=== PATIENT | male | born 1985 | race Caucasian/White ===

== ENCOUNTER 2017-03-24 18:41 | Emergency (ER) | payer OTHER, SELFPAY ==
[2017-03-24 19:47] VITALS: BP 127/67; PULSE 140; RESP 20; TEMP 37.4; O2SAT 98; BMI 22.4
[2017-03-24 20:09] LABS: UTC Influenza A Antigen Positive (Negative); UTC Influenza B Antigen Negative (Negative)
--- NOTE | 2017-03-24 20:25 | HMH.EDUTC ---
[facility] [place] Disposition Clinical Impression: Influenza A, Exposure to influenza Disposition: Home, Self-Care Condition on Discharge: Good Instructions: DI for Influenza -- Adult Additional Instructions: * Discussed risks, side effects, risk of allergic reaction, and possible benefits. We even discussed hallucinations and uncontrollable fevers. rather not take tamiflu. * Lots of rest * Increase fluids, water, gatorade, powerade, pedialyte if /toddler/child * Monitor Temp. Tylenol every 4 hours as needed no more then 5 times a day or 4000mg in 24 hours and/or ibuprofen every 6 hours as needed no more then 3200mg in 24 hours (as long as your primary care doctor has told you that it is ok to take both) for fever/aches/pain. ER if fever no less than 101 despite tylenol and Ibuprofen * OTC cold/flu/sinus medication is ok but pick one. Do not take multiple different ones as they have similar ingredients and you can overdose on cold medication. * You (or your child) are contagious until no fever, aches, chills x 24 hours without medication for symptoms. * offered anti-emetic. Declined. Has zofran and promethazine at home. * Follow up with primary care IMMEDIATELY for new or worsening symptoms, improvement followed by suddenly feeling worse OR no noticeable improvement over the next 48-72 hours. 911 for difficulty breathing Forms: Work/School Release Time of Disposition: 20:33 Medical Decision Making Vital Signs: 03/24/17 19:47 Temperature 99.4 F Temperature Source Temporal Artery Scan Pulse Rate [Right Brachial] 140 H Respiratory Rate 20 Blood Pressure [Right Arm] 127/67 Blood Pressure Mean [Right Arm] 87 Blood Pressure Source [Right Arm] Automatic Cuff Blood Pressure Position [Right Arm] Sitting 02 Sat by Pulse Oximetry 98 Oxygen Delivery Method Room Air - Lab Data Lab results reviewed: Yes: I reviewed the patient's lab results. Lab Results 03/24/17 19:48: Influenza Type A Ag Positive A, Influenza Type B Ag Negative - Tae Inquiry Pt receiving controlled substance: No [facility] [place] HPI - General Stated complaint: vomiting,,Body Pain Time Seen by Provider: 03/24/17 20:25 Mode of Arrival: Ambulatory Source of Information: Patient Limitations: No Limitations Description of Symptoms (Recalled from Triage Doc. by RN): body aches, fever, chills HEENT Symptoms (Recalled from RN notes): No Resp Symptoms (Recalled from RN notes): No Skin Symptoms (Recalled from RN notes): No MS Symptoms (Recalled from RN notes): No Functional Status (Recalled from RN notes): n/a - History of Present Illness Provider Complaint: c/o fever, aches, chills. I think I have the flu . Exposed at work on Friday. Started this morning and getting worse throughout the day. Hasn't taken or tried anything for symptoms. - Related Data Home Medications Medication Instructions Recorded Confirmed Sertraline HCl [Zoloft] 150 mg PO DAILY 03/24/17 03/24/17 Allergies Allergy/AdvReac Type Severity Reaction Status Date / Time meperidine [From DEMEROL] Allergy Intermediate Unverified 01/28/17 14:46 morphine [MORPHINE] Allergy Intermediate Unverified 01/28/17 14:46 Penicillins Allergy Verified 03/24/17 19:54 - Worker's Comp Is this a Worker's Comp case?: No Is this an [facility] Worker's Comp?: No Is this a Denisa Worker's Comp?: No [facility] History I have reviewed the patient's past medical history: Yes Medical History: Reports:: Anxiety Denies:: Asthma, Chronic Obstructive Pulmonary Disease (COPD), Diabetes Mellitus Type 1, Diabetes Mellitus Type 2, Hypertension Laterality Cases: Bilateral: Tonsillectomy Other Surgeries: Yes: Other (tympanoplasty, tonsillectomy, sinus polyps, vasectomy) - *Social History Educational Level: Completed High School Smoking Status: Current every day smoker Tobacco Type: cigarettes Alcohol Intake: never - Psychiatric History Expresses thoughts of harming self/others: None Suicide Plan Description: No Plan RO
--- NOTE | 2017-03-24 20:31 | ED_ITS ---
[facility] [place] Disposition Clinical Impression: Influenza A, Exposure to influenza Disposition: Home, Self-Care Condition on Discharge: Good Instructions: DI for Influenza -- Adult Additional Instructions: * Discussed risks, side effects, risk of allergic reaction, and possible benefits. We even discussed hallucinations and uncontrollable fevers. rather not take tamiflu. * Lots of rest * Increase fluids, water, gatorade, powerade, pedialyte if /toddler/child * Monitor Temp. Tylenol every 4 hours as needed no more then 5 times a day or 4000mg in 24 hours and/or ibuprofen every 6 hours as needed no more then 3200mg in 24 hours (as long as your primary care doctor has told you that it is ok to take both) for fever/aches/pain. ER if fever no less than 101 despite tylenol and Ibuprofen * OTC cold/flu/sinus medication is ok but pick one. Do not take multiple different ones as they have similar ingredients and you can overdose on cold medication. * You (or your child) are contagious until no fever, aches, chills x 24 hours without medication for symptoms. * offered anti-emetic. Declined. Has zofran and promethazine at home. * Follow up with primary care IMMEDIATELY for new or worsening symptoms, improvement followed by suddenly feeling worse OR no noticeable improvement over the next 48-72 hours. 911 for difficulty breathing Forms: Work/School Release Time of Disposition: 20:33 Medical Decision Making Vital Signs: 03/24/17 19:47 Temperature 99.4 F Temperature Source Temporal Artery Scan Pulse Rate [Right Brachial] 140 H Respiratory Rate 20 Blood Pressure [Right Arm] 127/67 Blood Pressure Mean [Right Arm] 87 Blood Pressure Source [Right Arm] Automatic Cuff Blood Pressure Position [Right Arm] Sitting 02 Sat by Pulse Oximetry 98 Oxygen Delivery Method Room Air - Lab Data Lab results reviewed: Yes: I reviewed the patient's lab results. Lab Results 03/24/17 19:48: Influenza Type A Ag Positive A, Influenza Type B Ag Negative - Tae Inquiry Pt receiving controlled substance: No [facility] [place] HPI - General Stated complaint: vomiting,,Body Pain Time Seen by Provider: 03/24/17 20:25 Mode of Arrival: Ambulatory Source of Information: Patient Limitations: No Limitations Description of Symptoms (Recalled from Triage Doc. by RN): body aches, fever, chills HEENT Symptoms (Recalled from RN notes): No Resp Symptoms (Recalled from RN notes): No Skin Symptoms (Recalled from RN notes): No MS Symptoms (Recalled from RN notes): No Functional Status (Recalled from RN notes): n/a - History of Present Illness Provider Complaint: c/o fever, aches, chills. I think I have the flu . Exposed at work on Friday. Started this morning and getting worse throughout the day. Hasn't taken or tried anything for symptoms. - Related Data Home Medications Medication Instructions Recorded Confirmed Sertraline HCl [Zoloft] 150 mg PO DAILY 03/24/17 03/24/17 Allergies Allergy/AdvReac Type Severity Reaction Status Date / Time meperidine [From DEMEROL] Allergy Intermediate Unverified 01/28/17 14:46 morphine [MORPHINE] Allergy Intermediate Unverified 01/28/17 14:46 Penicillins Allergy Verified 03/24/17 19:54 - Worker's Comp Is this a Worker's Comp case?: No Is this an [facility] Worker's Comp?: No Is this a Denisa Worker's Comp?: No [facility] History I have reviewed the patient's past medical
[2017-03-24 20:39] VITALS: BP 137/77; PULSE 103; RESP 20; TEMP 36.7; O2SAT 100
== END 2017-03-24 20:39 | disposition home or self-care (01) ==
PROVIDERS: Emergency Provider Nurse Practitioner Family; Family Provider Family Medicine
DX: J10.1 Influenza due to other identified influenza virus with other respiratory manifestations (principal); F41.9 Anxiety disorder, unspecified; Z88.0 Allergy status to penicillin; Z88.6 Allergy status to analgesic agent
CPT/HCPCS: 87804; 99202

== ENCOUNTER 2017-05-14 18:32 | Emergency (ER) | payer OTHER, SELFPAY ==
[2017-05-14 18:36] VITALS: BP 118/47; PULSE 136; RESP 20; TEMP 37.4; O2SAT 97; BMI 20.6
--- NOTE | 2017-05-14 19:07 | PC.NURSE ---
report given to GiulianaRN
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
[2017-05-14 20:00] VITALS: BP 144/82; PULSE 92; RESP 16; TEMP 37.2; O2SAT 94
== END 2017-05-14 19:58 ==
PROVIDERS: Emergency Provider Emergency Medicine; Family Provider Family Medicine
DX: F11.10 Opioid abuse, uncomplicated (principal); F41.9 Anxiety disorder, unspecified; F17.210 Nicotine dependence, cigarettes, uncomplicated; Z88.0 Allergy status to penicillin; Z88.6 Allergy status to analgesic agent
CPT/HCPCS: 36415; 96365; 99282

== ENCOUNTER 2020-09-02 14:00 | Emergency (ER) | payer OTHER, SELFPAY ==
[2020-09-02 14:16] VITALS: BP 132/91; PULSE 66; RESP 16; TEMP 36.8; O2SAT 98; BMI 24.8
--- NOTE | 2020-09-02 14:41 | HMH.EDUTC ---
[facility] [place] Disposition Clinical Impression: Poison sumac Disposition: Home, Self-Care Condition on Discharge: Good Instructions: Summertime Rashes: Poison Ana Maria, Andrew, and Sumac, Poisonous Plants: Ana Maria, Andrew, and Sumac: Beware the Oils Additional Instructions: steroids as ordered start tomorrow if symptoms worsen return or be seen in ed Prescriptions: predniSONE [Prednisone 20mg Tab] 20 mg PO BID #10 tab Prescription Printed Referrals: Emery Landrum [Primary Care Provider] - Time of Disposition: 14:49 Medical Decision Making - Tae Inquiry Pt receiving controlled substance: No Vital Signs: 09/02/20 14:16 Temperature 98.3 F Temperature Source Tympanic Pulse Rate [Apical] 66 Respiratory Rate 16 Blood Pressure [Right Arm] 132/91 H Blood Pressure Mean [Right Arm] 104 Blood Pressure Source [Right Arm] Automatic Cuff Blood Pressure Position [Right Arm] Supine 02 Sat by Pulse Oximetry 98 Oxygen Delivery Method Room Air [facility] [place] HPI - General Chief complaint: Urgent [facility] Stated complaint: rash Time Seen by Provider: 09/02/20 14:41 Mode of Arrival: Ambulatory Source of Information: Patient Limitations: No Limitations Description of Symptoms (Recalled from Triage Doc. by RN): rash on arm chest and back HEENT Symptoms (Recalled from RN notes): No Resp Symptoms (Recalled from RN notes): No Skin Symptoms (Recalled from RN notes): No MS Symptoms (Recalled from RN notes): No Functional Status (Recalled from RN notes): na - History of Present Illness Provider Complaint: 35 yr old male presents for rash to back,chest, dania arms and dania upper legs. 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 - Related Data Home Medications Medication Instructions Recorded Confirmed Albuterol Sulfate [Albuterol HFA 1 - 2 puffs IH Q4-6H PRN 08/03/18 08/03/18 Inhaler] Previous Rx's Medication Instructions Recorded predniSONE [Prednisone 20mg 20 mg PO BID #10 tab 08/03/18 Tab] Ibuprofen [Ibuprofen 600mg 600 mg PO Q6HP PRN #30 tab 11/11/18 Tablet] Methocarbamol [Robaxin 500mg Tab] 500 mg PO BIDP PRN #30 tab 11/11/18 predniSONE [Prednisone 20mg 20 mg PO BID 4 Days #8 tab 10/02/19 Tab] Albuterol Sulfate [Albuterol 2.5 mg IH Q6HP PRN 30 Days #120 neb 12/15/18 0.083% 2.5mg/3mL neb] Doxycycline Hyclate [Doxycycline 100 mg PO BID 10 Days #20 cap 12/15/18 100mg Capsule] methylPREDNISolone [Medrol] 4 mg PO DIRECTED 6 Days #21 12/15/18 tab.ds.pk Ibuprofen [Ibuprofen 600mg 600 mg PO Q6HP PRN #30 tab 03/08/19 Tablet] Methocarbamol [Robaxin 500mg Tab] 500 mg PO BIDP PRN #30 tab 03/08/19 predniSONE [Prednisone 20mg 20 mg PO BID #10 tab 09/02/20 Tab] Allergies Allergy/AdvReac Type Severity Reaction Status Date / Time Penicillins Allergy Verified 08/03/18 21:12 Sulfa (Sulfonamide Allergy Verified 12/15/18 14:23 Antibiotics) - Worker's Comp Is this a Worker's Comp case?: No [facility] History - Hepatitis A Screen Drug use history?: No High risk sexual behaviors?: No History of sexually transmitted infection?: No Currently employed?: No Childcare worker?: No Do you have indoor plumbing?: Yes Do you have electricity?: Yes Attestation statement:: This patient has been screened for Hepatitis A risk factors. I have reviewed the patient's past medical history: Yes Medical History: Reports:: Anxiety Denies:: Asthma, Cancer, Chronic Obstructive Pulmonary Disease (COPD), Diabetes Mellitus Type 1, Diabetes Mellitus Type 2, Hypertension, MRSA Laterality Cases: Bilateral: Tonsillectomy Other Surgeries: Yes: Other (tympanoplasty, tonsillectomy, sinus polyps, vasectomy) Amputation: No - Social History Smoking Status: Former smoker Tobacco Type: cigarettes # Packs/Day (cigarettes): 1 Alcohol Intake: never Alcohol Intake Frequency:: holidays/special occasions only Substance Use Type: heroin Occupational Status: employed Housing: house [place]ous
[2020-09-02 15:03] VITALS: BP 132/91; PULSE 66; RESP 19; TEMP 36.8; O2SAT 98
== END 2020-09-02 15:08 | disposition home or self-care (01) ==
PROVIDERS: Emergency Provider Nurse Practitioner Family; PCP Family Medicine
DX: L23.7 Allergic contact dermatitis due to plants, except food (principal); F41.9 Anxiety disorder, unspecified; Z87.891 Personal history of nicotine dependence; Z88.0 Allergy status to penicillin; Z88.2 Allergy status to sulfonamides
CPT/HCPCS: 99202; G0463

== ENCOUNTER 2020-10-25 10:29 | Emergency (ER) | payer OTHER, SELFPAY ==
[2020-10-25 10:31] VITALS: BP 123/77; PULSE 103; RESP 18; TEMP 36.8; O2SAT 98; BMI 23.7
[2020-10-25 11:10] VITALS: BP 134/72; PULSE 87; RESP 18; TEMP 36.7; O2SAT 99; BMI 23.7
--- NOTE | 2020-10-25 11:29 | HMH.EDUTC ---
[facility] [place]ression: Viral URI with cough Disposition: Home, Self-Care Condition on Discharge: Good Instructions: Cough, DI for Viral Upper Respiratory Infection -- Adult, DI for COVID-19 (Suspected or Confirmed ), Preventing the Spread of Coronavirus Discharge Instructions Additional Instructions: *Monitor Temp, Over the counter Motrin or Tylenol as directed/as needed Tylenol every 4 hours and Motrin every 6 hours (as long as your family doctor has told you that you can take it) for fever or pain. and straight to ER if unable to lower temp less than 101.0 after medication given *Warm salt water gargles may help to soothe the throat *Throat Lozenges *Warm fluids like tea with honey may help to soothe the throat *Sleep elevated *Humidifier/Vaporizer *Flonase 2 sprays in each nostril daily but be aware that it may take 2-3 days before you notice improvement *Bromfed may cause drowsiness. Know how it effects you (your child) before driving, caring for small child, or sending your child to school. Not other antihistamines/allergy medications while taking bromfed Follow up IMMEDIATELY for new or worsening symptoms or no Noticeable improvement over the next 48-72 hours. 911 for difficulty breathing or swallowing You were tested for today for COVID19 your test result should be back in the next 24-48 hours, You was given a handout with how to log onto [facility] portal to get your results if you have issues logging on or no internet access you may call the [facility] for your results You was given a handout with instructions for Self Quarantine and Self isolation for while you wait on test results and what to do if they are positive If you are positive the Health Dept will be contacting you also Make sure to take your Vitamins Vit. C Vit D and Zinc if you can take them Prescriptions: Brompheniramine/Pseudoephed/Dm [Bromfed Dm Cough Syrup] 5 - 10 ml PO Q46H PRN #200 ml PRN Reason: Cough Transmission Status: Pending to [facility] # Fluticasone Propionate [Flonase 50mcg nasal spray 16gm] 1 spr NS DAILY #1 each Transmission Status: Pending to [facility] # Referrals: Emery Landrum [Primary Care Provider] - As needed Forms: Work/School Release Time of Disposition: 11:36 Medical Decision Making - Tae Inquiry Pt receiving controlled substance: No Tae was queried for this patient: No Vital Signs: 10/25/20 10:31 10/25/20 11:10 Temperature 98.2 F 98.1 F Temperature Source Oral Oral Pulse Rate [Radial] 103 H 87 Respiratory Rate 18 18 Blood Pressure [Right Arm] 123/77 134/72 Blood Pressure Mean [Right Arm] 92 92 Blood Pressure Position [Right Arm] Sitting 02 Sat by Pulse Oximetry 98 99 Oxygen Delivery Method Room Air Room Air Orders (Tests/Meds): ORDERS Category Date Time Status Covid-19 Nasal PCR ([facility]) Routine Lab 10/25/20 11:16 [place] [facility] [place] - General Stated complaint: covid test, congestion, runny nose, [place] Time Seen by Provider: 10/25/20 11:29 Mode of Arrival: Ambulatory Description of Symptoms (Recalled from Triage Doc. by RN): C/O FEVER, BODY ACHES, SNEEZING, HEADACHE & RUNNY NOSE SINCE LAST NIGHT. REPORTS DAUGHTER IS SICK AT HOME HEENT Symptoms (Recalled from RN notes): No Resp Symptoms (Recalled from RN notes): No Skin Symptoms (Recalled from RN notes): No MS Symptoms (Recalled from RN notes): No Functional Status (Recalled from RN notes): WNL - History of Present Illness Provider Complaint: Patient states that he daughter has been sick having sneezing, coughing and runny nose and he has been laying with her States that now he started last night having nasal congestion, cough, low grade fever, headache and body aches so he wanted to come in and get tested for COVID due to work wanting him too due to symptoms - Related Data Home Medications Medication Instructions Recorded Confirmed Albuterol Sulfate [Albuterol HFA 1 - 2 puffs IH Q4-6H PRN 06
[2020-10-25 11:38] VITALS: BP 134/72; PULSE 87; RESP 18; TEMP 36.7
== END 2020-10-25 11:41 | disposition home or self-care (01) ==
LOC: ER 10:52 → UTC 10:52
PROVIDERS: Emergency Provider Nurse Practitioner; PCP Family Medicine
DX: J06.9 Acute upper respiratory infection, unspecified (principal); Z20.822 Contact with and (suspected) exposure to COVID-19
CPT/HCPCS: 99202; C9803; G0463; U0003; U0005

== ENCOUNTER → 2020-11-22 15:37 | Outpatient (CLI) | payer OTHER, SELFPAY | PROVIDERS: PCP Family Medicine; Visit Provider Nurse Practitioner | DX: Z20.822 Contact with and (suspected) exposure to COVID-19 (principal) | CPT/HCPCS: C9803; U0003; U0005 ==

== ENCOUNTER 2020-11-24 11:53 | Emergency (ER) | payer OTHER, SELFPAY ==
[2020-11-24 11:54] VITALS: BP 125/86; PULSE 114; RESP 18; TEMP 37.4; O2SAT 97; BMI 24.3
[2020-11-24 11:59] VITALS: BP 128/86; PULSE 112; RESP 16; O2SAT 97
--- NOTE | 2020-11-24 12:08 | XR_ITS ---
PROCEDURE: XR CHEST PORTABLE CLINICAL HISTORY: cough COMPARISON: CR Chest from 08/03/2018 FINDINGS: The cardiomediastinal silhouette and pulmonary vascularity are within normal limits. The lungs are clear without infiltrates, suspicious nodules, or pleural effusions. Mild upper thoracic curvature convex right IMPRESSION: No acute findings. Dictated by: Daniel Corrales MD 11/24/2020 12:26 Daniel Corrales MD in [place] 11/24/2020 12:26
--- NOTE | 2020-11-24 12:12 | PC.NURSE ---
notified rad of cxr order, spoke with adriana
[2020-11-24 12:30] VITALS: BP 121/83; PULSE 101; RESP 15; O2SAT 97
[2020-11-24 13:00] VITALS: BP 111/80; PULSE 102; O2SAT 96
[2020-11-24 13:17] LABS: Influenza A, PCR Not Detected (NotDetected); Influenza B, PCR Not Detected (NotDetected)
[2020-11-24 13:30] VITALS: BP 123/77; PULSE 99; O2SAT 97
[2020-11-24 13:40] LABS: Coronavirus 19, PCR Detected (NotDetected)
--- NOTE | 2020-11-24 13:48 | HMH.EDGENADL ---
ED Disposition Clinical Impression: Bronchitis due to COVID-19 virus Disposition: Home, Self-Care Condition on Discharge: Good Instructions: DI for Acute Bronchitis Prescriptions: Albuterol Sulfate [Albuterol Sulfate Hfa] 2 puff IH Q4HP PRN #1 each PRN Reason: Wheezing Transmission Status: Pending to [facility] #[id number] Referrals: Emery Landrum [Primary Care Provider] - - Critical Care Critical Care Time: No Attestation: On 11/24/20, the high probability of a clinically significant, sudden or life threatening deterioration of the following system(s) required my full and direct attention, intervention and personal management. The time I documented below is in addition to time spent performing reported procedures but includes the following listed in this critical care notation. Medical Decision Making - Medical Records Medical records reviewed: Yes: I reviewed the patient's medical records. - Tae Inquiry Pt receiving controlled substance: No Vital Signs: 11/24/20 11:54 11/24/20 11:59 11/24/20 12:30 Temperature 99.3 F Temperature Source Oral Pulse Rate 112 H 101 H Pulse Rate [Right Radial] 114 H Respiratory Rate 18 16 15 Blood Pressure 128/86 121/83 Blood Pressure [Right Arm] 125/86 Blood Pressure Mean 106 95 Blood Pressure Mean [Right Arm] 99 Blood Pressure Source [Right Arm] Automatic Cuff Blood Pressure Position [Right Arm] Sitting 02 Sat by Pulse Oximetry 97 97 97 Oxygen Delivery Method Room Air - Lab Data Lab Results 11/24/20 12:02: SARS-CoV-2 (PCR) Detected A, Influenza A Untype (PCR) Not detected, Influenza Type B (PCR) Not detected Orders (Tests/Meds): ED MEDICATIONS Discontinued Medications Generic Name Dose Route Start Last Admin Trade Name Freq PRN Reason Stop Dose Admin Diphenhydramine HCl 25 mg 11/24/20 12:08 11/24/20 12:12 Diphenhydramine 25mg Capsule PO 11/24/20 12:09 25 mg ONCE ONE Administration Ibuprofen 800 mg 11/24/20 12:08 11/24/20 12:12 Ibuprofen 400 Mg Tablet PO 11/24/20 12:09 800 mg ONCE ONE Administration - Radiology Data #1 Image(s): Chest Image Reviewed: Yes I reviewed the patient's radiology results, Yes I reviewed the patient's radiology image, Yes I have reviewed radiologist's interpretation Preliminary Findings: Normal/NAD - Reevaluation(s) Time: 13:50 Reevaluation #1: On reevaluation, patient is feeling better. He has no hypoxia. Nontoxic. Afebrile. Findings consistent with acute viral syndrome secondary to Covid. Patient to follow-up with PCP in 48 hours. Given strict return precautions. Patient was also given CDC quarantine guidelines. Verbalized understanding. Medical Decision Narrative: 35-year-old male presented to the emergency department with viral type symptoms. Patient has had multiple sick contacts. Findings consistent with bronchitis. Work-up initiated. General Adult HPI - General Chief complaint: Upper Respiratory Infection Stated complaint: covid symptoms/exposure Time Seen by Provider: 11/24/20 11:55 Mode of Arrival: Ambulatory Limitations: No Limitations Description of Symptoms (Recalled from ER Triage Doc. by RN): pt reports body aches, headache, MARTIN, produtive cough, fever. Pt reports he tested negative for covid 2 days ago, states his symptoms have worsened since then. Pt reports positive exposure. - History of Present Illness HPI narrative: Is a 35-year-old male presented to the emergency department with some cough, shortness of breath, headache and myalgias. Patient is having symptoms for the last 3 days. He states that he has had multiple sick contacts at his house all people diagnosed with Covid. The patient is unvaccinated. States his cough is been nonproductive in nature. Has had no hemoptysis. Denies any associated chest pain or palpitations. Headache is global. Denies any change in vision or focal weakness. Full body myalgia
[2020-11-24 14:09] VITALS: BP 123/77; PULSE 99; RESP 16; TEMP 37.4; O2SAT 97
== END 2020-11-24 14:09 | disposition home or self-care (01) ==
PROVIDERS: Emergency Provider Emergency Medicine; PCP Family Medicine
DX: U07.1 COVID-19 (principal); J40 Bronchitis, not specified as acute or chronic
CPT/HCPCS: 71045; 99282; C9803; U0003; U0005

== ENCOUNTER 2020-12-12 16:18 | Emergency (ER) | payer OTHER, SELFPAY ==
--- NOTE | 2020-12-12 17:42 | XR_ITS ---
PROCEDURE INFORMATION: Exam: XR Chest Exam date and time: 12/12/2020 5:42 PM Age: 35 years old Clinical indication: Cough TECHNIQUE: Imaging protocol: XR of the chest. Views: 2 views. COMPARISON: CR XR CHEST PORTABLE 11/24/2020 12:20 PM FINDINGS: Lungs: Unremarkable. No consolidation. Pleural spaces: Unremarkable. No pleural effusion. No pneumothorax. Heart/Mediastinum: Unremarkable. No cardiomegaly. Bones/joints: Unremarkable. IMPRESSION: No acute findings.
[2020-12-12 17:45] VITALS: BP 129/82; PULSE 80; RESP 16; TEMP 36.6; O2SAT 100; BMI 23.0
--- NOTE | 2020-12-12 17:59 | HMH.EDUTC ---
[facility] [facility] [place] Clinical Impression: Asthma exacerbation Qualifiers: Asthma severity: unspecified severity Asthma persistence: unspecified Qualified Code(s): J45.901 - Unspecified asthma with (acute) exacerbation Disposition: Home, Self-Care Condition on Discharge: Good Instructions: DI for Asthma -- Adult, DI for Acute Bronchitis Additional Instructions: Drink plenty of fluids. Take tylenol or ibuprofen for pain or fever. Take the medications as directed. Follow up with your regular doctor. GO TO THE ER FOR ANY WORSENING SYMPTOMS Don't start the oral steroids until tomorrow, since you had the shot here today. Prescriptions: Brompheniramine/Pseudoephed/Dm [Bromfed Dm Cough Syrup] 5 ml PO Q6HP PRN #240 ml PRN Reason: Cough Transmission Status: Received by [facility] #[id number] predniSONE [Deltasone 10mg tablet] 10 mg PO DAILY 9 Days #21 tab Transmission Status: Received by [facility] #[id number] guaiFENesin [Mucinex 600mg tablet] 1 - 2 tab PO BIDP PRN #30 tab PRN Reason: Congestion Transmission Status: Received by [facility] #[id number] Azithromycin [Z-Iain 250mg Tab*] 250 mg PO UD DOSE PK #6 tab Transmission Status: Received by [facility] #[id number] Referrals: Emery Landrum [Primary Care Provider] - Forms: Work/School Release Time of Disposition: 18:39 Medical Decision Making - Medical Records Medical records reviewed: No: I reviewed the patient's medical records. - Tae Inquiry Pt receiving controlled substance: No Vital Signs: 12/12/20 17:45 12/12/20 18:39 Temperature 97.9 F 97.9 F Temperature Source Oral Pulse Rate 80 Pulse Rate [Left] 80 Respiratory Rate 16 18 Blood Pressure 129/82 Blood Pressure [Right Arm] 129/82 Blood Pressure Mean [Right Arm] 97 02 Sat by Pulse Oximetry 100 - Lab Data Lab results reviewed: Yes: I reviewed the patient's lab results. Orders (Tests/Meds): ED MEDICATIONS Discontinued Medications Generic Name Dose Route Start Last Admin Trade Name Freq PRN Reason Stop Dose Admin Ceftriaxone Sodium 1 gm 12/12/20 18:32 Ceftriaxone 1gm Vial IM 12/12/20 18:33 ONCE ONE Lidocaine HCl 0 ml 12/12/20 18:32 Lidocaine 1% 5ml Pf Vial IM 12/12/20 18:33 ONCE ONE Methylprednisolone Sodium Succinate 125 mg 12/12/20 18:32 12/12/20 18:34 Methylprednisolone Sod Succ 125mg Vial IM 12/12/20 18:33 125 mg ONCE ONE Administration - Radiology Data #1 Image(s): Chest Image Reviewed: Yes I reviewed the patient's radiology image, Yes I have reviewed radiologist's interpretation Preliminary Findings: Normal/NAD, No Infiltrates Seen PROCEDURE INFORMATION: Exam: XR Chest Exam date and time: 12/12/2020 5:42 PM Age: 35 years old Clinical indication: Cough TECHNIQUE: Imaging protocol: XR of the chest. Views: 2 views. COMPARISON: CR XR CHEST PORTABLE 11/24/2020 12:20 PM FINDINGS: Lungs: Unremarkable. No consolidation. Pleural spaces: Unremarkable. No pleural effusion. No pneumothorax. Heart/Mediastinum: Unremarkable. No cardiomegaly. Bones/joints: Unremarkable. IMPRESSION: No acute findings. [facility] [place] - General Stated complaint: congestion,cough,Runny nose Time Seen by Provider: 12/12/20 17:59 Mode of Arrival: Ambulatory Source of Information: Patient Limitations: No Limitations Description of Symptoms (Recalled from Triage Doc. by RN): pt states he was positive for covid about 2.5 weeks ago. pt states he is now having a productive cough with green sputum and that his chest feels tight. pt states he gets pneumonia about this time every year. pt states this feels the same. HEENT Symptoms (Recalled from RN notes): No Resp Symptoms (Recalled from RN notes): Yes (productive cough with green sputum) Skin Symptoms (Recalled from RN notes): No MS Symptoms (Recalled from RN notes): No Functional Statu
[2020-12-12 18:39] VITALS: BP 129/82; PULSE 80; RESP 18; TEMP 36.6
== END 2020-12-12 18:54 | disposition home or self-care (01) ==
PROVIDERS: Emergency Provider Nurse Practitioner Family; PCP Family Medicine
DX: J45.901 Unspecified asthma with (acute) exacerbation (principal); F41.9 Anxiety disorder, unspecified; Z86.16 Personal history of COVID-19
CPT/HCPCS: 71046; 96372; 99202; G0463

== ENCOUNTER 2021-02-06 11:07 | Emergency (ER) | payer OTHER, SELFPAY ==
[2021-02-06 12:21] VITALS: BP 127/74; PULSE 70; RESP 18; TEMP 37.1; O2SAT 98; BMI 23.0
[2021-02-06 12:30] VITALS: BP 127/74; PULSE 70; RESP 18; TEMP 37.1
[2021-02-06 12:31] LABS: UTC Strep Screen (Rapid) Positive (Negative)
--- NOTE | 2021-02-06 12:52 | HMH.EDUTC ---
[facility] [place] Clinical Impression: Strep throat Disposition: Home, Self-Care Condition on Discharge: Good Instructions: Strep Throat, DI for Strep Throat Additional Instructions: Drink plenty of fluids. Take tylenol or ibuprofen for pain or fever. Take the medications as directed. Follow up with your regular doctor. GO TO THE ER FOR ANY WORSENING SYMPTOMS Throw your tooth brush away and get a new one. The zofran is nausea/vomiting. Take it if you have those symptoms. Prescriptions: Ondansetron [Zofran 4mg ODT] 4 mg PO Q8HP PRN #20 tab PRN Reason: Nausea Transmission Status: Received by [facility] # predniSONE [Deltasone 10mg tablet] 10 mg PO BID 3 Days #6 tab Transmission Status: Received by [facility] # Azithromycin [Z-Iain 250mg Tab*] 250 mg PO UD DOSE PK #6 tab Transmission Status: Received by [facility] # Referrals: Emery Landrum [Primary Care Provider] - Forms: Work/School Release Time of Disposition: 13:14 Medical Decision Making - Medical Records Medical records reviewed: No: I reviewed the patient's medical records. - Tae Inquiry Pt receiving controlled substance: No Vital Signs: 02/06/21 12:21 02/06/21 12:30 Temperature 98.7 F 98.7 F Temperature Source Oral Pulse Rate 70 Pulse Rate [Left] 70 Respiratory Rate 18 18 Blood Pressure 127/74 Blood Pressure [Right Arm] 127/74 Blood Pressure Mean [Right Arm] 91 02 Sat by Pulse Oximetry 98 - Lab Data Lab results reviewed: Yes: I reviewed the patient's lab results. Lab Results 02/06/21 12:25: Strep Scn Rapid Clinic Positive A [facility] [place] HPI - General Stated complaint: vomiting,diarrhea,headache Time Seen by Provider: 02/06/21 12:52 Mode of Arrival: Ambulatory Source of Information: Patient Limitations: No Limitations Description of Symptoms (Recalled from Triage Doc. by RN): pt c/o a THIBODEAUX, n/v/d, and a stomach ache. has strep. HEENT Symptoms (Recalled from RN notes): Yes (THIBODEAUX) Resp Symptoms (Recalled from RN notes): No Skin Symptoms (Recalled from RN notes): No MS Symptoms (Recalled from RN notes): No Functional Status (Recalled from RN notes): wnl - History of Present Illness Provider Complaint: He states that he has had a sore throat and felt bad for the past 2 days. His was diagnosed with strep throat 2 days ago. He denies any fever or significant congestion or cough. - Related Data Home Medications Medication Instructions Recorded Confirmed Albuterol Sulfate [Albuterol HFA 1 - 2 puffs IH Q4-6H PRN 08/03/18 08/03/18 Inhaler] Previous Rx's Medication Instructions Recorded predniSONE [Prednisone 20mg 20 mg PO BID #10 tab 08/03/18 Tab] Ibuprofen [Ibuprofen 600mg 600 mg PO Q6HP PRN #30 tab 11/11/18 Tablet] Methocarbamol [Robaxin 500mg Tab] 500 mg PO BIDP PRN #30 tab 11/11/18 predniSONE [Prednisone 20mg 20 mg PO BID 4 Days #8 tab 11/11/18 Tab] Albuterol Sulfate [Albuterol 2.5 mg IH Q6HP PRN 30 Days #120 neb 12/15/18 0.083% 2.5mg/3mL neb] Doxycycline Hyclate [Doxycycline 100 mg PO BID 10 Days #20 cap 12/15/18 100mg Capsule] methylPREDNISolone [Medrol] 4 mg PO DIRECTED 6 Days #21 12/15/18 tab.ds.pk Ibuprofen [Ibuprofen 600mg 600 mg PO Q6HP PRN #30 tab 03/08/19 Tablet] Methocarbamol [Robaxin 500mg Tab] 500 mg PO BIDP PRN #30 tab 03/08/19 predniSONE [Prednisone 20mg 20 mg PO BID #10 tab 09/02/20 Tab] Brompheniramine/Pseudoephed/Dm 5 - 10 ml PO Q46H PRN #200 ml 10/25/20 [Bromfed Dm Cough Syrup] Fluticasone Propionate [Flonase 1 spr NS DAILY #1 each 10/25/20 50mcg nasal spray 16gm] Albuterol Sulfate [Albuterol 2 puff IH Q4HP PRN #1 each 11/24/20 Sulfate Hfa] Azithromycin [Z-Iain 250mg Tab*] 250 mg PO UD DOSE PK #6 tab 12/12/20 Brompheniramine/Pseudoephed/Dm 5 ml PO Q6HP PRN #240 ml 12/12/20 [Bromfed Dm Cough Syrup] guaiFENesin [Mucinex 600mg tablet] 1 - 2 tab PO BI
== END 2021-02-06 13:25 | disposition home or self-care (01) ==
PROVIDERS: Emergency Provider Nurse Practitioner Family; PCP Family Medicine
DX: J02.0 Streptococcal pharyngitis (principal); Z88.0 Allergy status to penicillin; Z88.2 Allergy status to sulfonamides
CPT/HCPCS: 87880; 99202; G0463

== ENCOUNTER → 2021-03-21 12:33 | Outpatient (CLI) | payer OTHER, SELFPAY ==
[2021-03-21 14:11] LABS: Volume,Semen 3.5 ml (2.0-5.0)
[2021-03-21 14:12] LABS: PH,Semen 8.5 (7.3-8.3); Semen Viscosity Stringy (Normal); Sperm Count 0 mil/mm3 (20-160); WBCs,Semen Negative
== END ==
PROVIDERS: PCP Family Medicine; Referring Provider Nurse Practitioner Obstetrics & Gynecology; Visit Provider Nurse Practitioner Obstetrics & Gynecology
DX: Z31.440 Encounter of male for testing for genetic disease carrier status for procreative management (principal)
CPT/HCPCS: 89320

== ENCOUNTER 2021-03-27 09:55 | Emergency (ER) | payer OTHER, SELFPAY ==
[2021-03-27 10:10] VITALS: BP 141/85; PULSE 74; RESP 19; TEMP 36.7; O2SAT 100; BMI 23.7
[2021-03-27 10:30] LABS: UTC Influenza A Antigen Negative (Negative); UTC Influenza B Antigen Negative (Negative)
--- NOTE | 2021-03-27 11:02 | HMH.EDUTC ---
[facility] – [place] Dis[place] Clinical Impression: Viral syndrome Disposition: Home, Self-Care Condition on Discharge: Good Instructions: DI for Nausea -- Adult, Diarrhea, Loperamide Additional Instructions: Drink extra fluids with and between meals. If you have difficulty drinking, try very small amounts of water or suck on ice chips. ? Avoid fruit juices, as these do not replace minerals and can actually increase diarrhea. ? Children and adults can use sports drinks to replenish electrolytes. Younger children and infants should use products formulated for children, like oral rehydration solutions. ? Eat food in small amounts and let your stomach recover. ? Get lots of rest. You may feel tired or weak. ? No greasy or fried foods for the next 24-48 hours BRAT diet Bananas Rice Apples and [place] ? Make sure to drink plenty of liquids ? Return if needed ? Straight to ER if any life threatening symptoms ? Zofran as prescribed ? You was given an outpatient order for diarrhea panel, please collect specimen and bring back to outpatient lab then call back to the [facility] or follow up with family doctor for results ? Follow up with family doctor in the next 48-72 hours if no improvement or any worsening of symptoms Referrals: Emery Landrum [Primary Care Provider] - As needed Forms: Work/School Release Time of Disposition: 11:14 Medical Decision Making - Tae Inquiry Pt receiving controlled substance: No Tae was queried for this patient: No Vital Signs: 03/27/21 10:10 Temperature 98.1 F Temperature Source Oral Pulse Rate [Right Brachial] 74 Respiratory Rate 19 Blood Pressure [Right Arm] 141/85 H Blood Pressure Mean [Right Arm] 103 Blood Pressure Source [Right Arm] Automatic Cuff Blood Pressure Position [Right Arm] Sitting 02 Sat by Pulse Oximetry 100 Oxygen Delivery Method Room Air - Lab Data Lab results reviewed: Yes: I reviewed the patient's lab results. Lab Results 03/27/21 10:26: Influenza Type A Ag Negative, Influenza Type B Ag Negative Orders (Tests/Meds): ORDERS Category Date Time Status Covid-19 Nasal PCR ([facility]) Routine Lab 03/27/21 10:14 Received [facility] [place] HPI - General Stated complaint: chills, diarrhea, h/a, congestion, body aches Time Seen by Provider: 03/27/21 11:02 Mode of Arrival: Ambulatory Source of Information: Patient Limitations: No Limitations Description of Symptoms (Recalled from Triage Doc. by RN): PATIENT C/O VOMITING AND BODY ACHES X 3 DAYS HEENT Symptoms (Recalled from RN notes): No Resp Symptoms (Recalled from RN notes): No Skin Symptoms (Recalled from RN notes): No MS Symptoms (Recalled from RN notes): Yes Functional Status (Recalled from RN notes): WNL - History of Present Illness Provider Complaint: Patient states johnnie the has been having body aches, chills, nasal congestion and vomiting and diarrhea States that he has some zofran at home that has helped with nausea and vomitng but he was worried that he may have COVID or flu so he wanted to get checked and tested - Related Data Allergies Allergy/AdvReac Type Severity Reaction Status Date / Time Penicillins Allergy Verified 10/25/20 11:29 Sulfa (Sulfonamide Allergy Verified 10/25/20 11:29 Antibiotics) - Worker's Comp Is this a Worker's Comp case?: No H History - Hepatitis A Screen Drug use history?: No High risk sexual behaviors?: No History of sexually transmitted infection?: No Currently employed?: No Childcare worker?: No Do you have indoor plumbing?: Yes Do you have electricity?: Yes Attestation statement:: This patient has been screened for Hepatitis A risk factors. I have reviewed the patient's past medical history: Yes Medical History: Reports:: Anxiety Denies:: Asthma, Cancer, Chronic Obstructive Pulmonary Disease (COPD), Diabetes Mellitus Type 1, Diabetes Mellitus Type 2, Hypertension, MRSA Laterality Cases: Bilateral: Tonsillectomy Other Surgeries: Yes: Other (tympanoplasty, tonsillectom
[2021-03-27 11:22] VITALS: BP 141/85; PULSE 74; RESP 19; TEMP 36.7; O2SAT 100
== END 2021-03-27 11:25 | disposition home or self-care (01) ==
PROVIDERS: Emergency Provider Nurse Practitioner; PCP Family Medicine
DX: B34.9 Viral infection, unspecified (principal); F41.9 Anxiety disorder, unspecified; Z87.891 Personal history of nicotine dependence; Z20.822 Contact with and (suspected) exposure to COVID-19; Z88.0 Allergy status to penicillin; Z88.2 Allergy status to sulfonamides
CPT/HCPCS: 87804; 99202; C9803; G0463; U0003; U0005

== ENCOUNTER 2021-05-07 11:31 | Emergency (ER) | payer OTHER, SELFPAY ==
[2021-05-07 13:10] VITALS: BP 128/81; PULSE 62; RESP 20; TEMP 37.1; O2SAT 98; BMI 22.6
--- NOTE | 2021-05-07 13:28 | HMH.EDUTC ---
[facility] [place]: Bronchitis, Influenza A Sinusitis Qualifiers: Sinusitis location: unspecified location Chronicity: unspecified Qualified Code(s): J32.9 - Chronic sinusitis, unspecified Disposition: Home, Self-Care Condition on Discharge: Good Instructions: Sinusitis, DI for Sinusitis, DI for Acute Bronchitis Additional Instructions: *Monitor Temp, Over the counter Motrin or Tylenol as directed/as needed Tylenol every 4 hours and Motrin every 6 hours (as long as your family doctor has told you that you can take it) for fever or pain. and straight to ER if unable to lower temp less than 101.0 after medication given *Warm salt water gargles may help to soothe the throat *Throat Lozenges *Warm fluids like tea with honey may help to soothe the throat *Sleep elevated *Humidifier/Vaporizer Take medication as prescribed Return if needed Follow up IMMEDIATELY for new or worsening symptoms or no Noticeable improvement over the next 48-72 hours. 911 for difficulty breathing or swallowing Prescriptions: predniSONE [Deltasone 10mg tablet] 10 mg PO BID #10 tab Transmission Status: Pending to [facility] #[id number] Oseltamivir Phosphate [Tamiflu 75mg Capsule] 75 mg PO BID #10 cap Transmission Status: Pending to [facility] #[id number] Azithromycin [Z-Iain 250mg Tab] 250 mg PO DIRECTED #6 tab Transmission Status: Pending to [facility] #[id number] Referrals: Emery Landrum [Primary Care Provider] - As needed Forms: Work/School Release Time of Disposition: 13:41 Medical Decision Making - Tae Inquiry Pt receiving controlled substance: No Tae was queried for this patient: No Vital Signs: 05/07/21 13:10 Temperature 98.8 F Temperature Source Oral Pulse Rate [Right Brachial] 62 Respiratory Rate 20 Blood Pressure [Right Arm] 128/81 Blood Pressure Mean [Right Arm] 96 Blood Pressure Source [Right Arm] Automatic Cuff Blood Pressure Position [Right Arm] Sitting 02 Sat by Pulse Oximetry 98 Oxygen Delivery Method Room Air - Lab Data Lab results reviewed: Yes: I reviewed the patient's lab results. [facility] [place] - General Stated complaint: cough, congestion, fever Time Seen by Provider: 05/07/21 13:35 Mode of Arrival: Ambulatory Source of Information: Patient Limitations: No Limitations Description of Symptoms (Recalled from Triage Doc. by RN): PATIENT C/O COUGH, SOA, AND STOMACH CRAMPS HEENT Symptoms (Recalled from RN notes): No Resp Symptoms (Recalled from RN notes): Yes Skin Symptoms (Recalled from RN notes): No MS Symptoms (Recalled from RN notes): No Functional Status (Recalled from RN notes): WNL - History of Present Illness Provider Complaint: Patient states that he has been sick for about a week States that he was having sinus congestion and at times he has had a productive cough like he gets with bronchitits but then was around someone with flu now he is feeling achy and headaches so he came in - Related Data Previous Rx's Medication Instructions Recorded Azithromycin [Z-Iain 250mg Tab] 250 mg PO DIRECTED #6 tab 05/07/21 Oseltamivir Phosphate [Tamiflu 75 mg PO BID #10 cap 05/07/21 75mg Capsule] predniSONE [Deltasone 10mg tablet] 10 mg PO BID #10 tab 05/07/21 Allergies Allergy/AdvReac Type Severity Reaction Status Date / Time Penicillins Allergy Verified 10/25/20 11:29 Sulfa (Sulfonamide Allergy Verified 10/25/20 11:29 Antibiotics) - Worker's Comp Is this a Worker's Comp case?: No [facility] History - Hepatitis A Screen Drug use history?: No High risk sexual behaviors?: No History of sexually transmitted infection?: No Currently employed?: No Childcare worker?: No Do you have indoor plumbing?: Yes Do you have electricity?: Yes Attestation statement:: This patient has been screened for Hepatitis A risk factors. I have reviewed the patient's past medical history: Yes Medical History: Reports:: Anxiety Denies:: Asthma, C
[2021-05-07 13:35] LABS: UTC Influenza A Antigen Positive (Negative); UTC Influenza B Antigen Negative (Negative)
[2021-05-07 13:48] VITALS: BP 128/81; PULSE 62; RESP 20; TEMP 37.1; O2SAT 98
== END 2021-05-07 13:52 | disposition home or self-care (01) ==
PROVIDERS: Emergency Provider Nurse Practitioner; PCP Family Medicine
DX: J10.1 Influenza due to other identified influenza virus with other respiratory manifestations (principal); J32.9 Chronic sinusitis, unspecified; Z79.82 Long term (current) use of aspirin; Z79.899 Other long term (current) drug therapy; Z88.0 Allergy status to penicillin; Z88.2 Allergy status to sulfonamides; Z87.891 Personal history of nicotine dependence
CPT/HCPCS: 87804; 99213; G0463

== ENCOUNTER 2021-08-29 17:28 | Emergency (ER) | payer OTHER, SELFPAY ==
[2021-08-29 17:37] VITALS: BP 121/83; PULSE 111; RESP 17; TEMP 37.1; O2SAT 95; BMI 23.0
[2021-08-29 17:46] LABS: UTC Strep Screen (Rapid) Negative (Negative)
--- NOTE | 2021-08-29 17:46 | HMH.EDUTC ---
[facility] [place] Clinical Impression: Viral syndrome, Exposure to COVID-19 virus Disposition: Home, Self-Care Condition on Discharge: Good Instructions: DI for COVID-19 (Suspected or Confirmed ), Preventing the Spread of Coronavirus Discharge Instructions Additional Instructions: Drink plenty of fluids. Take tylenol or ibuprofen for pain or fever. Take the medications as directed. Follow up with your regular doctor. GO TO THE ER FOR ANY WORSENING SYMPTOMS Quarantine until you know the results of your covid-19 test. Notify your school or workplace of your results and follow their instructions regarding return to work/school. Prescriptions: Ondansetron [Zofran 4mg ODT] 4 mg PO Q8HP PRN #12 tab PRN Reason: Nausea Transmission Status: Received by [facility] #[id number] Benzonatate [Benzonatate 100mg cap] 100 mg PO TIDP PRN #30 cap PRN Reason: Cough Transmission Status: Received by [facility] #[id number] methylPREDNISolone [Medrol] 4 mg PO DIRECTED 6 Days #21 packet Transmission Status: Received by [facility] #[id number] Referrals: Emery Landrum [Primary Care Provider] - Forms: Work/School Release Time of Disposition: 18:14 Medical Decision Making - Medical Records Medical records reviewed: No: I reviewed the patient's medical records. - Tae Inquiry Pt receiving controlled substance: No Vital Signs: 08/29/21 17:37 08/29/21 18:16 Temperature 98.7 F 98.2 F Temperature Source Oral Oral Pulse Rate 102 H Pulse Rate [Left Radial] 111 H Respiratory Rate 17 18 Blood Pressure 119/80 Blood Pressure [Right Arm] 121/83 Blood Pressure Mean [Right Arm] 95 02 Sat by Pulse Oximetry 95 Oxygen Delivery Method Room Air Room Air - Lab Data Lab results reviewed: Yes: I reviewed the patient's lab results. Lab Results 08/29/21 17:36: Chlamy pneumoniae PCR Not detected, Adenovirus (PCR) Not detected, B. pertussis DNA (PCR) Not detected, Coronavirus OC43 (PCR) Not detected, Coronavirus HKU1 (PCR) Not detected, Coronavirus 229E (PCR) Not detected, SARS-CoV-2 (PCR) Detected A, Coronavirus NL63 (PCR) Not detected, Human Metapneumovir PCR Not detected, Influenza A (H1) PCR Not detected, Influ A (H1N1/09) PCR Not detected, Influenza A (H3) PCR Not detected, Influenza Type A (PCR) Not detected, Influenza Type B (PCR) Not detected, M. pneumoniae (PCR) Not detected, Parainfluenza 1 (PCR) Not detected, Parainfluenza 2 (PCR) Not detected, Parainfluenza 3 (PCR) Not detected, Parainfluenza 4 (PCR) Not detected, RSV (PCR) Not detected, Entero/Rhino (PCR) Not detected 08/29/21 17:41: Strep Scn Rapid Clinic Negative Orders (Tests/Meds): ORDERS Category Date Time Status Strep Screen Confirmation Stat Micro 08/29/21 17:41 Received [facility] [place] HPI - General Stated complaint: covid test, sore throat, cough SOA, THIBODEAUX Time Seen by Provider: 08/29/21 17:46 Mode of Arrival: Ambulatory Source of Information: Patient Limitations: No Limitations Description of Symptoms (Recalled from Triage Doc. by RN): pt to [facility] c/o fever, body ches and a cough since yesterday. HEENT Symptoms (Recalled from RN notes): Yes Resp Symptoms (Recalled from RN notes): Yes Skin Symptoms (Recalled from RN notes): No MS Symptoms (Recalled from RN notes): No Functional Status (Recalled from RN notes): na - History of Present Illness Provider Complaint: He states that he has had fever up to 102, cough, chest congestion, body aches, and nausea - Related Data Previous Rx's Medication Instructions Recorded Azithromycin [Z-Iain 250mg Tab] 250 mg PO DIRECTED #6 tab 05/07/21 Oseltamivir Phosphate [Tamiflu 75 mg PO BID #10 cap 05/07/21 75mg Capsule] predniSONE [Deltasone 10mg tablet] 10 mg PO BID #10 tab 05/07/21 Benzonatate [Benzonatate 100mg 100 mg PO TIDP PRN #30 cap 08/29/21 cap] Ondansetron [Zofran 4mg ODT] 4 mg PO Q8HP PRN #12 tab 08/29/21 methylPREDNISolone [Medrol] 4 mg PO
[2021-08-29 18:16] VITALS: BP 119/80; PULSE 102; RESP 18; TEMP 36.8; O2SAT 97
[2021-08-29 18:36] LABS: Adenovirus,PCR Not Detected (NotDetected); Bordetella Pertussis Not Detected (NotDetected); Chlamydophila Pneumoniae, PCR Not Detected (NotDetected); Coronavirus 229E Not Detected (NotDetected); Coronavirus NL63 Not Detected (NotDetected); Coronavirus OC43 Not Detected (NotDetected); Coronovirus HKU1,PCR Not Detected (NotDetected); Human Metapneumovirus Not Detected (NotDetected); Influenza A, PCR Not Detected (NotDetected); Influenza AH1, 2009 Not Detected (NotDetected); Influenza AH1, PCR Not Detected (NotDetected); Influenza AH3,PCR Not Detected (NotDetected); Influenza B, PCR Not Detected (NotDetected); Mycoplasma Pneumoniae, PCR Not Detected (NotDetected); Parainfluenza 1, PCR Not Detected (NotDetected); Parainfluenza 2, PCR Not Detected (NotDetected); Parainfluenza 3, PCR Not Detected (NotDetected); Parainfluenza 4, PCR Not Detected (NotDetected); Respiratory Syncytial Virus Not Detected (NotDetected); Rhinovirus/Enterovirus Not Detected (NotDetected)
[2021-08-29 20:37] LABS: Coronavirus 19, PCR Detected (NotDetected)
== END 2021-08-29 18:17 | disposition home or self-care (01) ==
PROVIDERS: Emergency Provider Nurse Practitioner Family; PCP Family Medicine
DX: U07.1 COVID-19 (principal)
CPT/HCPCS: 87581; 87632; 87798; 87880; 99212; C9803; G0463; U0003; U0005

== ENCOUNTER 2023-03-10 08:37 | Observation (INO) | payer OTHER, SELFPAY ==
[2023-03-10] VITALS (10 sets, daily range): BP systolic 117–136; BP diastolic 66–100; PULSE 53–104; RESP 17–20; TEMP 36.7–37.2; O2SAT 97–100; BMI 22.4; BMI 21.1
--- NOTE | 2023-03-10 08:56 | ED_ITS ---
Discharge Plan Disposition Patient Disposition: Admitted Clinical Impressions Clinical Impression: Acute pancreatitis Discharge ED Provider: Jyoti Frausto General Adult HPI General Chief complaint: Abdominal Pain Stated complaint: ABD Pain Time Seen by Provider: 03/10/23 08:40 Mode of Arrival: EMS Source of Information: Patient Limitations: No Limitations Description of Symptoms (Recalled from ER Triage Doc. by RN): Patient brought to ED via [facility] c/o of abd pain. Patient also reports N/V/D that all started this morning. In route patient had 4mg zofran and 60mg Toradol per EMS. History of Present Illness HPI narrative: This patient is a 37-year-old male who reports remote history of bleeding ulcer, history of cholecystectomy, and history of anxiety presenting to the emergency department for evaluation with concern for intractable nausea, vomiting, and diarrhea that started at 5:00 this morning. He states that he is having severe cramping in his upper abdomen all the way across. He denies ever experiencing like this before. He denies any blood in his vomit or stools, and he denies any melena. He denies any other concerns or complaints. He notes that he does smoke marijuana but denies any significant alcohol use history. No other con cerns noted at this time. He arrives by EMS who noted that for his severe symptoms, they given 4 mg of Zofran and 60 mg of Toradol with no improvement in his symptoms. Related Data Previous Rx's Medication Instructions Recorded trazodone 50 mg tablet See Rx Instructions .Route 02/17/23 .COMPLEX #30 tabs venlafaxine 75 mg capsule,extended See Rx Instructions .Route 02/17/23 release 24 hr .COMPLEX #30 caps Allergies Allergy/AdvReac Type Severity Reaction Status Date / Time Penicillins Allergy Verified 12/19/22 09:50 Sulfa (Sulfonamide Allergy Verified 12/19/22 09:50 Antibiotics) [facility] Disclaimer: The information contained in this section may have been updated after the chikis ent was seen, as this information can be updated by other users. Medical History Generalized anxiety disorder History of bleeding ulcers Insomnia Surgical History History of cholecystectomy History of placement of ear tubes History of tonsillectomy Social History Smoking Status: Never smoker second hand exposure: No alcohol intake: current counseling given: No substance use type: former substance user, heroin and IV drugs counseling given: No current occupational status: employed Travel in the last 8 weeks: None adopted: No caregiver/support person: Yes (he has 2 kids at home) foster care: No household members: spouse and children housing: house lives independently: Yes marital status: number of children: 2 number of grandchildren: 0 education level: high school service: No current occupation: works at [employer] Recent Travel: No sexually active: Yes are you practicing safe sex: Yes caffeine: Yes physical activity: none zarina/judaism: None special zarina needs: No working smoke detector in home: Yes fire extinguisher in home: No carbon monox detector in home: Yes firearms in home: Yes firearms unloaded and locked: Yes do you feel safe at home: Yes victim of physical abuse: No victim of emotional abuse: No victim of sexual abuse: No would you like helpful sources: No ROS Obtained: Yes All systems reviewed & no additional complaints except as documented Physical Exam General General appearance: alert Comment: uncomfortable appearing Head Head exam: atraumatic and normocephalic Eye Eye exam: Present normal appearance, PERRL and EOMI ENT ENT exam: Present normal exam, normal oropharynx, mucous membranes moist and normal external ear exam Neck Neck exam: Present normal inspection, full ROM and trachea midline; Absent tenderness Chest Chest inspection: Present normal inspection and symmetric chest wall rise; Abs ent tenderness Respiratory Respiratory exam: Present normal lung sounds bilaterally; Absent respiratory distress, wheezes, stridor or accessory muscle use Cardiovascular Cardiovascular exam: Present regular rate and normal rhythm Abdominal Exam Abdominal exam: Present soft, tenderness (epigastric) and normal bowel sounds; Absent distention, guarding, rebound or rigidity Extremities Exam Extremities exam: Present normal inspection, full ROM and normal capillary refill; Absent tenderness or edema Back Exam Back exam: Present normal inspection and full ROM; Absent tenderness Neurological Exam Neurological exam: Present alert, oriented X3, CN II-XII intact and normal gait; Absent motor sensory deficit Psychiatric Psychiatric exam: Present normal affect and normal mood Skin Skin exam: Present warm and dry Medical Decision Making Medical Records Medical records reviewed: Yes I reviewed the patient's medical records. Tae Inquiry Pt receiving controlled substance: No Vital Signs: 03/10/23 08:41 03/10/23 09:00 03/10/23 10:00 Temperature 99.0 F Temperature Source Oral Pulse Rate 65 83 Pulse Rate [Right Radial] 69 Respiratory Rate 20 Blood Pressure 136/83 132/76 Blood Pressure [Right Arm] 131/100 H Blood Pressure Mean 99 Blood Pressure Mean [Right Arm] 110 Blood Pressure Source [Right Arm] Automatic Cuff Blood Pressure Position [Right Arm] Supine 02 Sat by Pulse Oximetry 99 100 100 Oxygen Delivery Method Room Air Room Air Room Air 03/10/23 11:00 03/10/23 12:00 Temperature Temperature Source Pulse Rate 64 53 L Pulse Rate [Right Radial] Respiratory Rate Blood Pressure 123/77 125/80 Blood Pressure [Right Arm] Blood Pressure Mean 104 104 Blood Pressure Mean [Right Arm] Blood Pressure Source [Right Arm] Blood Pressure Position [Right Arm] 02 Sat by Pulse Oximetry 99 Oxygen Delivery Method Room Air Lab Data Lab results reviewed: Yes I reviewed the patient's lab results. Lab Results 03/10/23 08:40: WBC 21.5 H*, RBC 5.24, Hgb 17.2, Hct 48.1, MCV 91.8, MCH 32.8 H, MCHC 35.7 H, RDW 13.6, Plt Count 230, MPV 7.9, Neut % (Auto) 90.6 H, Lymph % (Auto) 4.6 L, [place] % (Auto) 2.7, Eos % (Auto) 1.6, Baso % (Auto) 0.4, Neut # (Auto) 19.5 H, Lymph # (Auto) 1.0, [place] # (Auto) 0.6, Eos # (Auto) 0.4, Baso # (Auto) 0.1, Total Counted 100, Neutrophils % (Manual) 88 H, Band Neutrophils % 2.0, Lymphocytes % (Manual) 4 L, Monocytes % (Manual) 4, Eosinophils % (Manual) 2, Platelet Estimate Normal, RBC Morphology Normal, Sodium 136, Potassium 4.2, Chloride 103, Carbon Dioxide 21 L, Anion Gap 16.2 H, BUN 14, Creatinine 1.00, Estimated Creat Clear 108, Estimated GFR 85, Est GFR ( Amer) 102, Glucose 170 H, Calcium 9.0, Total Bilirubin 0.7, AST 67 H, ALT 49, Alkaline Phosphatase 73, Total Protein 7.4, Albumin 4.5, Globulin 2.9, Albumin/Globulin Ratio 1.6, Triglycerides 54, Cholesterol 205 H, LDL Cholesterol Direct 128.95, VLDL Cholesterol 11, HDL Cholesterol 42, Cholesterol/HDL Ratio 4.9 H, Lipase 728 H 03/10/23 09:30: Lactate 4.3 H 03/10/23 08:40 03/10/23 08:40 Orders (Tests/Meds): ED MEDICATIONS Generic Name Dose Route Start Last Admin Trade Name Jacek PRN Reason Stop Dose Admin Hydrocodone Bitart/Acetaminophen 1 tab 03/10/23 12:59 Hydrocodone/Apap 5/325 Mg Tablet PO 04/09/23 12:58 Q6HP PRN Mild to Moderate Pain (1-6) Heparin Sodium (Porcine) 5,000 unit 03/10/23 13:00 03/10/23 13:05 Heparin Sodium 5,000 Unit/Ml Vial SQ 04/09/23 12:59 5,000 unit Q8H PATRICIA Administration Ondansetron HCl 4 mg 03/10/23 12:59 Ondansetron 4mg/2ml Vial IV 04/09/23 12:58 Q6HP PRN Nausea And Vomiting Sodium Chloride 8 ml 03/10/23 08:57 03/10/23 08:59 Sodium Chloride 0.9% 10ml Vial IV 04/09/23 08:56 8 ml NEEDED PRN Administration dilute pepcid Discontinued Medications Generic Name Dose Route Start Last Admin Trade Name Jacek PRN Reason Stop Dose Admin Acetaminophen 1,000 mg 03/10/23 09:08 03/10/23 09:16 Acetaminophen 1,000mg/100ml Vial IV 03/10/23 09:09 1,000 mg ONCE ONE Administration Dicyclomine HCl 20 mg 03/10/23 08:55 03/10/23 09:00 Dicyclomine 10mg Capsule PO 03/10/23 08:56 20 mg ONCE ONE Administration Famotidine 20 mg 03/10/23 08:57 03/10/23 08:59 Famotidine 20mg/2ml Vial IV 03/10/23 08:58 20 mg ONCE ONE Administration Hydromorphone HCl 2 mg 03/10/23 09:21 03/10/23 09:34 Hydromorphone 2mg/Ml Syringe IV 03/10/23 09:22 Not Given ONCE ONE Hydromorphone HCl 1 mg 03/10/23 09:32 03/10/23 09:26 Hydromorphone 2mg/Ml Syringe IV 03/10/23 09:33 1 mg ONCE ONE Administration Lactated Ringer's 1,000 mls @ 999 mls/hr 03/10/23 08:55 03/10/23 08:59 Lactated Ringer's 1000 Ml Bag IV 03/10/23 09:55 999 mls/hr .Q1H1M ONE Administration Lactated Ringer's 1,000 mls @ 999 mls/hr 03/10/23 09:55 03/10/23 10:34 Lactated Ringer's 1000 Ml Bag IV 03/10/23 10:55 999 mls/hr .Q1H1M ONE Administration Iopamidol 75 ml 03/10/23 09:44 03/10/23 09:45 Iopamidol-370 (76%);100ml Bottle IV 03/10/23 09:45 75 ml ONCE ONE Administration Metoclopramide HCl 10 mg 03/10/23 08:55 03/10/23 08:59 Metoclopramide Hcl 10mg/2ml Vial IVP 03/10/23 08:56 10 mg ONCE ONE Administration Morphine Sulfate 4 mg 03/10/23 09:08 03/10/23 09:16 Morphine 4mg/Ml Syringe IV 03/10/23 09:09 4 mg ONCE ONE Administration Sodium Chloride 10 ml 03/10/23 09:44 03/10/23 09:45 Sodium Chloride 0.9% 10ml Syr (Rad Only) IV 03/10/23 09:45 10 ml ONCE ONE Administration ORDERS Category Date Time Status CT abdomen pelvis w con Stat Cat Scan 03/10/23 09:08 Completed US RUQ [US abdomen limited] Stat Exams 03/10/23 11:03 Completed Complete Blood Count Auto Diff AMLAB Lab 03/11/23 06:00 Ordered Complete Blood Count Auto Diff Stat Lab 03/10/23 08:40 Completed Comprehensive Metabolic Panel AMLAB Lab 03/11/23 06:00 Ordered Comprehensive Metabolic Panel Stat Lab 03/10/23 08:40 Completed Lactic Acid Stat Lab 03/10/23 09:30 Completed Lipase Stat Lab 03/10/23 08:40 Completed Lipid Panel Stat Lab 03/10/23 08:40 Completed Magnesium AMLAB Lab 03/11/23 06:00 Ordered Blood Culture Stat Micro 03/10/23 09:58 Received Medical Decision Narrative: In summary, this patient is a 37-year-old male presenting to the Emergency Department for evaluation of epigastric pain, nausea, vomiting, and diarrhea that started this morning. Differential diagnoses considered include but are not limited to viral syndrome, gastroenteritis, infectious colitis, pancreatitis, dehydration, cannabinoid induced hyperemesis. Ruling out the most morbid co nditions drove assessment. On exam, the patient is uncomfortable appearing and is actively asking for pain medication. He has tenderness in his epigastric region. He has already had remote history of cholecystectomy. Workup included CBC, CMP, lipase. He was given a bolus of IV fluids as well as IV Reglan and Bentyl for symptomatic improvement. Lab evaluation demonstrated concerns for lipase greater than 700. Patient also has leukocytosis of 21. Blood cultures and lactic acid were sent. Lactic acid was elevated, so 2 L bolus of IV fluids was ordered. Patient continued to have pain, so he was given IV morphine. This did not improve his pain, so he was ultimately given IV Dilaudid with good control of his pain. Given findings concerning for acute pancreatitis without known etiology, CT scan abdomen pelvis with IV contrast was ordered. This did not demonstrate any definitive reason, though the patient does have findings concerning for enteritis versus ileus, independent interpretation. He has a lot of fluid-filled loops of bowel. Please see radiology read for final interpretation. To further evaluate, right upper quadrant ultrasound was ordered. I independently interpreted right upper quadrant ultrasound and noted no obvious biliary dilatation. Given this, feel the patient would benefit from admission here for further evaluation and management of his acute pancreatitis. I called and had an interactive discussion with the hospitalist, Dr. Cornelius, who graciously admitted the patient. He was admitted in stable condition. Critical Care Critical Care Time Critical Care Time: No
[2023-03-10] MEDS: FAMOTIDINE 20MG/2ML VIAL 20 MG IV (08:59)
[2023-03-10] MEDS: LACTATED RINGERS 1000ML 1,000 ML 999 ML IV ×2 (08:59→10:34)
[2023-03-10] MEDS: SODIUM CHLORIDE 0.9% 10ML VIAL 8 ML IV (08:59)
[2023-03-10] MEDS: METOCLOPRAMIDE HCL 10MG/2ML VIAL 10 MG IVP (08:59)
[2023-03-10] MEDS: DICYCLOMINE 10MG CAPSULE 20 MG PO (09:00)
[2023-03-10 09:01] LABS: Basophils # 0.1 K/mm3 (0-0.2); Basophils % 0.4 % (0.1-2.0); Eosinophils # 0.4 K/mm3 (0.0-0.4); Eosinophils % 1.6 % (0.1-12.0); Hematocrit 48.1 % (42.0-52.0); Hemoglobin 17.2 g/dL (14.1-18.0); Lymphocytes % 4.6 % (10-50); Mean Corpuscular HGB Conc 35.7 g/dL (31.8-35.4); Mean Corpuscular Hemoglobin 32.8 pg (27.0-31.2); Mean Corpuscular Volume 91.8 fl (80-94); Mean Platelet Volume 7.9 fl (7.4-10.4); Monocytes # 0.6 K/mm3 (0.1-1.0); Monocytes % 2.7 % (1.7-9.3); Neutrophils # 19.5 K/mm3 (1.8-7.8); Neutrophils % 90.6 % (37.0-80.0); Platelet Count 230 K/mm3 (142-424); Red Blood Count 5.24 M/mm3 (4.60-6.20); Red Cell Distribution Width 13.6 % (11.5-17.5); White Blood Count 21.5 K/mm3 (4.8-10.8)
[2023-03-10 09:06] LABS: Alanine Aminotransferase 49 U/L (12-78); Albumin Level 4.5 g/dl (3.5-5.0); Albumin/Globulin Ratio 1.6 (1.1-1.8); Alkaline Phosphatase 73 U/L (38-126); Anion Gap 16.2 mEq/L (5-15); Aspartate Amino Transferase 67 U/L (17-59); Bilirubin,Total 0.7 mg/dl (0.2-1.3); Blood Urea Nitrogen 14 mg/dl (9-20); Carbon Dioxide 21 mmol/L (22.0-30.0); Chloride 103 mmol/L (98-107); Creatinine Clearance Estimated 108 mL/min (50-200); Estimated Glomerular Filt Rate 85 ml/min (>60); GFR (African American) 102 ML/MIN (>60); Globulin 2.9 g/dL (1.3-3.2); Glucose 170 mg/dl (74-100); Potassium 4.2 mmoL/L (3.5-5.1); Sodium 136 mmol/L (136-145); Total Protein,Serum 7.4 g/dl (6.3-8.2)
[2023-03-10 09:07] LABS: Lipase 728 U/L (23-300)
--- NOTE | 2023-03-10 09:08 | CT_ITS ---
FINAL REPORT TECHNIQUE: After the administration of intravenous contrast, axial images were obtained through the abdomen and pelvis by computed tomography. This study was performed with technique to keep radiation doses as low as reasonably achievable, (ALARA). Individualized dose reduction techniques using automated exposure control or adjustment of the MA and/or KV according to the patient's size were employed. CLINICAL HISTORY: acute pancreatitis, remote h/o cholecystectomy FINDINGS: Abdomen: The lung bases are clear. The liver is normal in size and attenuation. Patient is status postcholecystectomy. There is mild extrahepatic biliary ductal dilatation measuring up to 10 mm which may be related to postcholecystectomy change. The spleen is unremarkable. The adrenals are normal. The pancreas is unremarkable. There are bilateral nonobstructing renal stones measuring up to 4 mm. The aorta is normal in caliber. There is no free fluid or adenopathy. Pelvis: The appendix is not identified. The urinary bladder is unremarkable. There is no free fluid or adenopathy. There are fluid-filled loops of distal small bowel and cecum which may be due to enterocolitis or ileus. Fluid-filled cecum measures up to 7 cm. Prostate is unremarkable. IMPRESSION: No CT findings of pancreatitis. Fluid-filled distal small bowel and proximal colon which may represent enterocolitis or ileus. Reviewed, Interpreted and Dictated by Mik Brito MD Transcribed by Valery Barrientos Authenticated and [facility]
[2023-03-10 09:12] LABS: MANUAL DIFFERENTIAL MANUAL DIFFERENTIAL (MANUAL DIFF)
[2023-03-10] MEDS: ACETAMINOPHEN 1,000MG/100ML VIAL 1000 MG IV (09:16)
[2023-03-10] MEDS: MORPHINE 4MG/ML SYRINGE 4 MG IV (09:16)
[2023-03-10] MEDS: HYDROMORPHONE 2MG/ML SYRINGE 1 MG IV (09:26)
--- NOTE | 2023-03-10 09:35 | PC.NURSE ---
pt to CT at this time
--- NOTE | 2023-03-10 09:42 | PC.NURSE ---
Patient back from CT
[2023-03-10] MEDS: SODIUM CHLORIDE 0.9% 10ML SYR (RAD ONLY) 10 ML IV (09:45)
[2023-03-10] MEDS: IOPAMIDOL-370 (76%);100ML BOTTLE 75 ML IV (09:45)
[2023-03-10 09:55] LABS: Lactic Acid 4.3 mmol/L (0.7-2.1)
[2023-03-10 09:59] LABS: Eosinophils % 2 % (0-3); Lymphocytes % 4 % (10-50); Monocytes % 4 % (2-9); Neutrophils % 88 % (42-76); Total Cells Counted 100
[2023-03-10 10:01] LABS: Platelet Estimate Normal; RBC Morphology Normal
--- NOTE | 2023-03-10 11:03 | US_ITS ---
FINAL REPORT CLINICAL HISTORY: new onset pancreatitis, unknown etiology COMPARISON: None FINDINGS: Sonographic images of the right upper quadrant were obtained. The pancreas is partially obscured.The liver has an unremarkable appearance. Status post cholecystectomy. There is no evidence of biliary ductal dilatation.The common duct measures 3 mm. Limited images of the right kidney are unremarkable. IMPRESSION: Unremarkable right upper quadrant ultrasound. Reviewed, Interpreted and Dictated by Mik Brito MD Transcribed by Pham Story Authenticated and . [facility]
[2023-03-10 11:16] LABS: Chol/HDL Ratio 4.9 (1-3.5); Cholesterol 205 mg/dl (140-200); HDL Cholesterol 42 mg/dl (40-60); Triglycerides 54 mg/dl (30-150); VLDL Cholesterol 11 mg/dL (0-40)
--- NOTE | 2023-03-10 11:18 | PC.NURSE ---
PT SLEEPING IN BED CALL LIGHT AT BS
[2023-03-10 11:27] LABS: Direct LDL Cholesterol 128.95 mg/dL (100-129)
--- NOTE | 2023-03-10 12:59 | PC.NURSE ---
call made to care management for bed placement
--- NOTE | 2023-03-10 13:02 | P.HP_ITS ---
History of Present Illness *Admission Date: 03/10/23 *Reason for visit:: nausea and vomiting, abdominal pain *History of present illness: Mr. Valdivia is a 37yo M with anxiety who presented to the ED via EMS for abdominal pain, nausea, vomiting and diarrhea. States symptoms all began this morning about 4 5 in the morning. Acute onset of pain in his left upper quadrant and he began to have nausea and vomiting both from feeling nauseous but also from the pain. Denies any previous illness in the past week. No known sick contacts. Does have a remote history of bleeding ulcer many years ago and history of cholecystectomy when he was 16 after phrenectomy (secondary to his ulcer). Was in his normal state of health yesterday. Denies drinking more than once a week. Smokes marijuana occasionally. Reports emesis was bilious but nonbloody. No bloody bowel movement. No coffee-ground emesis. Workup in the ER concerning for elevated lipase of 700, intractable nausea and vomiting, and significant abdominal pain. Ultrasound obtained showing no biliary dilatation. Medicine consulted for admission and further medical management of suspected pancreatitis. On arrival to the floor, patient has tremor, looks quite anxious. No active nausea at that moment after medications administered in the ER. Status post 2 L IV fluid in the ER. No other complaints at this time. [facility] Disclaimer: The information contained in this section may have been updated after the patient was seen, as this information can be updated by other users. Medical History Asthma Generalized anxiety disorder H/O renal calculi History of bleeding ulcers Insomnia Surgical History History of abdominal surgery History of cholecystectomy History of nasal surgery History of placement of ear tubes History of tonsillectomy Family History No significant family history Social History Smoking Status: Never smoker second hand exposure: No alcohol intake: current counseling given: No substance use type: former substance user, heroin and IV drugs counseling given: No current occupational status: employed Travel in the last 8 weeks: None adopted: No caregiver/support person: Yes (he has 2 kids at home) foster care: No household members: spouse and children housing: house lives independently: Yes marital status: number of children: 2 number of grandchildren: 0 education level: high school service: No current occupation: works at [employer] Recent Travel: No sexually active: Yes are you practicing safe sex: Yes caffeine: Yes physical activity: none zarina/latter-day: None special zarina needs: No working smoke detector in home: Yes fire extinguisher in home: No carbon monox detector in home: Yes firearms in home: Yes firearms unloaded and locked: Yes do you feel safe at home: Yes victim of physical abuse: No victim of emotional abuse: No victim of sexual abuse: No would you like helpful sources: No Review of Systems Review of Systems Review of systems (narrative): 14 point review of systems performed, pertinent positives and negatives as per [facility] Meds Home Medications and Allergies Home Medications Medication Instructions Recorded Confirmed Type loratadine 10 mg tablet (Claritin) 10 mg PO DAILY Allergy Symptoms 03/10/23 03/10/23 History trazodone 50 mg tablet 50 mg PO HS Sleep 03/10/23 03/10/23 History venlafaxine 75 mg capsule,extended 75 mg PO DAILY Mood 03/10/23 03/10/23 History release 24 hr New Prescriptions to Start Prescriptions: Allergies Allergy/AdvReac Type Severity Reaction Status Date / Time Penicillins Allergy Verified 12/19/22 09:50 Sulfa (Sulfonamide Allergy Verified 12/19/22 09:50 Antibiotics) Exam Data for Last 24 hours Vital signs and Labs for Last 24 Hours: Temp Pulse Resp BP Pulse Ox O2 Del Method 99.0 F 53 L 20 125/80 99 Room Air 03/10/23 08:41 03/10/23 12:00 03/10/23 08:41 03/10/23 12:00 03/10/23 11:00 03/10/23 11:00 Laboratory Results - last 24 hr 03/10/23 08:40: WBC 21.5 H*, RBC 5.24, Hgb 17.2, Hct 48.1, MCV 91.8, MCH 32.8 H, MCHC 35.7 H, RDW 13.6, Plt Count 230, MPV 7.9, Neut % (Auto) 90.6 H, Lymph % (Auto) 4.6 L, [place] % (Auto) 2.7, Eos % (Auto) 1.6, Baso % (Auto) 0.4, Neut # (Auto) 19.5 H, Lymph # (Auto) 1.0, [place] # (Auto) 0.6, Eos # (Auto) 0.4, Baso # (Auto) 0.1, Total Counted 100, Neutrophils % (Manual) 88 H, Band Neutrophils % 2.0, Lymphocytes % (Manual) 4 L, Monocytes % (Manual) 4, Eosinophils % (Manual) 2, Platelet Estimate Normal, RBC Morphology Normal, Sodium 136, Potassium 4.2, Chloride 103, Carbon Dioxide 21 L, Anion Gap 16.2 H, BUN 14, Creatinine 1.00, Estimated Creat Clear 108, Estimated GFR 85, Est GFR ( Amer) 102, Glucose 170 H, Calcium 9.0, Total Bilirubin 0.7, AST 67 H, ALT 49, Alkaline Phosphatase 73, Total Protein 7.4, Albumin 4.5, Globulin 2.9, Albumin/Globulin Ratio 1.6, Triglycerides 54, Cholesterol 205 H, LDL Cholesterol Direct 128.95, VLDL Cholesterol 11, HDL Cholesterol 42, Cholesterol/HDL Ratio 4.9 H, Lipase 728 H 03/10/23 09:30: Lactate 4.3 H I & O for Last 24 hours: Intake & Output 03/07/23 03/08/23 03/09/23 03/10/23 23:59 23:59 23:59 23:59 Weight 74.843 kg Constitutional Constitutional: mild distress, average body habitus and cooperative *Routine HEENT Exam Head: Present normocephalic Eye: Present EOMI and PERRL ENT: Present mucous membranes moist *Routine Neck Exam Neck: Present supple; Absent lymphadenopathy *Routine Respiratory Exam Respiratory: Present CTA bilaterally; Absent rhonchi, wheezes or crackles *Routine Cardiovascular Exam Cardiovascular: Present RRR *Routine Abdominal Exam Abdominal: Present soft, normoactive bowel sounds and tenderness (Upper abdomen, worse in left upper quadrant) *Routine Rectal Exam Rectal:: deferred *Routine Genitalia Exam Genitalia:: deferred *Routine Extremities Exam Extremities: Absent cyanosis, clubbing or edema *Routine Skin Exam Skin: Present warm; Absent rash *Routine Neurological Exam Neurological: Present alert, oriented X3, moving all extremities and tremors; Absent altered mental status Routine Psychiatric Exam Psychiatric: Present normal affect, normal thought process and anxious Assessment and Plan *Assessment and plan (1) Acute pancreatitis: Status: Acute Category: Medical Code(s): K85.90 - Acute pancreatitis without necrosis or infection, unspecified (2) Vomiting and diarrhea: Status: Acute Category: Medical Code(s): R11.10 - Vomiting, unspecified; R19.7 - Diarrhea, unspecified (3) Leukocytosis: Status: Acute Category: Medical Code(s): D72.829 - Elevated white blood cell count, unspecified (4) Generalized anxiety disorder: Status: Acute Category: Medical Code(s): F41.1 - Generalized anxiety disorder Plan 37-year-old male who presents with nausea and vomiting. Concern for pancreatitis on workup in the ER. Discussed case with ER physician, request admission for IV fluids, pain management, bowel rest. Medicine agreed to admit for further management. Patient tremulous upon arriving to the floor, appears quite anxious. Anxiety addressed with one 0.5mg dose of Ativan. Initiated on IV fluids. Problems addressed as follows: Pancreatitis Nausea/vomiting/diarrhea -Lipase elevated above 700. Only 1 points on Parksley score at this time. -CT imaging shows ileus. Personally reviewed. -Will initiate clear liquids, encourage patient to rest his bowels but this gives him options to drink if he would like. -Pantoprazole 40 mg IV twice daily for GERD component/acid suppression -Hydrocodone 5 mg as needed every 6 hours for pain -LDH pending -Leukocytosis of 21,000, suspect D marginalization. Has no fever. No indication for antibiotics at this time. If develops worsening symptoms, fever, hemodynamic instability, will initiate antibiotics at that time. -No indication for surgical consult at this time as there is no biliary dilatation, status postcholecystectomy, pancreas relatively unremarkable on reviewed CT. -Zofran 4 mg IV as needed every 6 hours for nausea/vomiting -LR at 125 cc an hour for total of 2 L. Generalized anxiety: Continue home Effexor 75 mg daily. Will give 1 dose Ativan 0.5 mg IV given acute anxiety and tremor. Concerned his anxiety is a component of his nausea. If continues to be nervous and cannot tolerate his home medication, will continue Ativan 0.5 mg every 6 hours as needed for anxiety Full code Clear liquid diet Heparin subcu
[2023-03-10] MEDS: HEPARIN SODIUM 5,000 UNIT/ML VIAL 5000 UNIT SQ ×2 (13:05→20:16)
--- NOTE | 2023-03-10 13:20 | PC.NURSE ---
Attempted to give report to second floor , RN will call back.
--- NOTE | 2023-03-10 13:24 | HMH.PHAINT1 ---
Pharmacy Intervention Comments: MEDICATION RECONCILIATION COMPLETED ON PATIENT USING EXTERNAL FILL HISTORY FROM PHARMACY. -FRANCI AYERS, JAMESOND
--- NOTE | 2023-03-10 13:32 | PC.NURSE ---
report given to Alexandra Paula RN on second floor at this time.
[2023-03-10 13:34] LABS: Reflex Lactic Add Lactic Reflex
[2023-03-10 14:22] LABS: Lactic Acid Follow Up (RFLX 1) 2.8 mmol/L (0.7-2.1)
[2023-03-10] MEDS: VENLAFAXINE XR 75MG CAPSULE 75 MG PO (14:25)
[2023-03-10] MEDS: SODIUM CHLORIDE 0.9% 10ML VIAL 10 ML IV ×3 (14:25→20:18)
[2023-03-10] MEDS: LORazepam 2MG/ML VIAL 0.5 MG IV ×2 (14:25→20:17)
[2023-03-10 16:11] LABS: Reflex Lactic (2 hrs) Add Lactic Reflex
[2023-03-10] MEDS: LACTATED RINGERS 1000ML 1,000 ML 125 ML IV (16:31)
[2023-03-10 16:49] LABS: Lactic Acid Follow up (RFLX 2) 1.8 mmol/L (0.7-2.1)
[2023-03-10 17:28] LABS: Lactate Dehydrogenase 322 U/L (313-618)
[2023-03-10] MEDS: PANTOPRAZOLE 40MG VIAL 40 MG IV (20:15)
[2023-03-10] MEDS: HYDROCODONE/APAP 5/325 MG TABLET 1 TAB PO (21:24)
[2023-03-11] MEDS: LACTATED RINGERS 1000ML 1,000 ML 125 ML IV (01:37)
[2023-03-11 04:00] VITALS: BP 135/61; PULSE 78; RESP 16; TEMP 36.8; O2SAT 97; BMI 21.1
[2023-03-11] MEDS: HEPARIN SODIUM 5,000 UNIT/ML VIAL 5000 UNIT SQ ×3 (05:01→20:37)
--- NOTE | 2023-03-11 05:36 | PC.NURSE ---
Pt has rested through the night. Complained of anxiety and pain one time this shift. Pt ambulates to the restroom and uses urinal. Pt took shower. has been at the bedside through night. No other concerns.
[2023-03-11] MEDS: HYDROCODONE/APAP 5/325 MG TABLET 1 TAB PO ×2 (06:52→14:22)
[2023-03-11] MEDS: LORazepam 2MG/ML VIAL 0.5 MG IV ×2 (06:53→13:19)
[2023-03-11] MEDS: SODIUM CHLORIDE 0.9% 10ML VIAL 10 ML IV ×2 (06:53→09:00)
[2023-03-11 07:01] LABS: Basophils % 0.4 % (0.1-2.0); Eosinophils # 0.2 K/mm3 (0.0-0.4); Monocytes # 0.6 K/mm3 (0.1-1.0)
[2023-03-11 07:18] LABS: Alanine Aminotransferase 212 U/L (12-78); Albumin Level 3.4 g/dl (3.5-5.0); Albumin/Globulin Ratio 1.5 (1.1-1.8); Alkaline Phosphatase 69 U/L (38-126); Anion Gap 7.3 mEq/L (5-15); Aspartate Amino Transferase 150 U/L (17-59); Bilirubin,Total 0.8 mg/dl (0.2-1.3); Blood Urea Nitrogen 9 mg/dl (9-20); Calcium 8.5 mg/dl (8.4-10.2); Carbon Dioxide 31 mmol/L (22.0-30.0); Chloride 103 mmol/L (98-107); Creatinine Clearance Estimated 102 mL/min (50-200); Estimated Glomerular Filt Rate 85 ml/min (>60); GFR (African American) 102 ML/MIN (>60); Globulin 2.3 g/dL (1.3-3.2); Glucose 99 mg/dl (74-100); Magnesium 1.9 mg/dl (1.6-2.3); Potassium 4.3 mmoL/L (3.5-5.1); Sodium 137 mmol/L (136-145); Total Protein,Serum 5.7 g/dl (6.3-8.2)
[2023-03-11 07:21] LABS: Hematocrit 43.3 % (42.0-52.0); Lymphocytes % 13.3 % (10-50); Mean Corpuscular HGB Conc 33.8 g/dL (31.8-35.4); Mean Corpuscular Volume 91.7 fl (80-94); Monocytes % 7.7 % (1.7-9.3); Neutrophils # 5.4 K/mm3 (1.8-7.8); Neutrophils % 75.7 % (37.0-80.0); Platelet Count 182 K/mm3 (142-424); Red Blood Count 4.72 M/mm3 (4.60-6.20); Red Cell Distribution Width 13.5 % (11.5-17.5); White Blood Count 7.2 K/mm3 (4.8-10.8)
[2023-03-11 07:29] LABS: Hemoglobin 14.6 g/dL (14.1-18.0)
[2023-03-11 08:00] VITALS: BP 116/72; PULSE 77; RESP 18; TEMP 36.4; O2SAT 99
[2023-03-11] MEDS: PANTOPRAZOLE 40MG VIAL 40 MG IV (09:00)
[2023-03-11] MEDS: VENLAFAXINE XR 75MG CAPSULE 75 MG PO (09:00)
[2023-03-11] MEDS: HYDROMORPHONE 2MG/ML SYRINGE 1 MG IV (09:40)
[2023-03-11] MEDS: 0.9 % SODIUM CHLORIDE 1000ML 1,000 ML 75 ML IV ×2 (10:24→23:28)
[2023-03-11] MEDS: ONDANSETRON 4MG/2ML VIAL 4 MG IV ×2 (11:23→17:44)
--- NOTE | 2023-03-11 11:49 | EXP.PN ---
Subjective *Date: 03/11/23 *Time: 11:49 Interval history: He is complaining of Abdominal Pain, he has nausea, pain is located in epigastric area, denied CP, SOB, fevers Exam Data for Last 24 hours Vital signs and Labs for Last 24 Hours: Temp Pulse Resp BP Pulse Ox O2 Del Method 97.6 F 77 18 116/72 99 Room Air 03/11/23 08:00 03/11/23 08:00 03/11/23 08:00 03/11/23 08:00 03/11/23 08:00 03/11/23 08:00 Laboratory Results - last 24 hr 03/10/23 14:06: Lactate 2.8 H 03/10/23 16:25: Lactate 1.8, Lactate Dehydrogenase 322 03/11/23 06:39: WBC 7.2 D, RBC 4.72, Hgb 14.6 D, Hct 43.3, MCV 91.7, MCH 31.0, MCHC 33.8, RDW 13.5, Plt Count 182, MPV 8.0, Neut % (Auto) 75.7, Lymph % (Auto) 13.3, [place] % (Auto) 7.7, Eos % (Auto) 3.0, Baso % (Auto) 0.4, Neut # (Auto) 5.4, Lymph # (Auto) 1.0, Marathon # (Auto) 0.6, Eos # (Auto) 0.2, Baso # (Auto) 0.0, Sodium 137, Potassium 4.3, Chloride 103, Carbon Dioxide 31 H, Anion Gap 7.3, BUN 9 D, Creatinine 1.00, Estimated Creat Clear 102, Estimated GFR 85, Est GFR ( Amer) 102, Glucose 99 D, Calcium 8.5, Magnesium 1.9, Total Bilirubin 0.8, AST 150 H D, ALT 212 H D, Alkaline Phosphatase 69, Total Protein 5.7 L, Albumin 3.4 L D, Globulin 2.3, Albumin/Globulin Ratio 1.5 I & O for Last 24 hours: Intake & Output 03/08/23 03/09/23 03/10/23 03/11/23 23:59 23:59 23:59 23:59 Intake Total 390 / 390 1329 / 1329 Output Total 350 / 350 450 / 450 Balance 40 / 40 879 / 879 Weight 70.76 kg 70.71 kg Constitutional Constitutional: no acute distress *Routine HEENT Exam Head: Present normocephalic Eye: Present EOMI and PERRL ENT: Present mucous membranes moist *Routine Neck Exam Neck: Present supple; Absent lymphadenopathy *Routine Respiratory Exam Respiratory: Present CTA bilaterally *Routine Cardiovascular Exam Cardiovascular: Present RRR *Routine Abdominal Exam Abdominal: Present soft, normoactive bowel sounds and tenderness Comments: tender in epigastric area *Routine Extremities Exam Extremities: Absent cyanosis, clubbing or edema *Routine Skin Exam Skin: Present warm; Absent rash *Routine Neurological Exam Neurological: Present alert and oriented X3 Assessment and Plan *Assessment and plan (1) Acute pancreatitis: Status: Acute Category: Medical Code(s): K85.90 - Acute pancreatitis without necrosis or infection, unspecified (2) Vomiting and diarrhea: Status: Acute Category: Medical Code(s): R11.10 - Vomiting, unspecified; R19.7 - Diarrhea, unspecified (3) Leukocytosis: Status: Acute Category: Medical Code(s): D72.829 - Elevated white blood cell count, unspecified (4) Generalized anxiety disorder: Status: Acute Category: Medical Code(s): F41.1 - Generalized anxiety disorder Plan 37-year-old male who presents with nausea and vomiting. Concern for pancreatitis on workup in the ER. Discussed case with ER physician, request admission for IV fluids, pain management, bowel rest. Medicine agreed to admit for further management. Patient tremulous upon arriving to the floor, appears quite anxious. Anxiety addressed with one 0.5mg dose of Ativan. Initiated on IV fluids. Problems addressed as follows: Pancreatitis Nausea/vomiting/diarrhea continue on CLD for now -Pantoprazole 40 mg IV daily -start on Dilaudid for pain control -Leukocytosis of 21,000 - likely reactive -Zofran 4 mg IV as needed every 6 hours for nausea/vomiting -LR at 125 cc an hour for total of 2 L. Generalized anxiety: Continue home Effexor 75 mg daily. Will give 1 dose Ativan 0.5 mg IV given acute anxiety and tremor. Concerned his anxiety is a component of his nausea. Full code Clear liquid diet DVT PPx - Heparin
[2023-03-11] MEDS: HYDROCODONE/APAP 5/325 MG TABLET 2 TAB PO (12:00)
[2023-03-11] MEDS: HYDROMORPHONE 2MG/ML SYRINGE 2 MG IV ×2 (13:35→20:37)
[2023-03-11 16:00] VITALS: BP 126/55; PULSE 85; RESP 17; TEMP 36.6; O2SAT 98
--- NOTE | 2023-03-11 19:23 | PC.NURSE ---
Patient has been in pain most of shift. Pain captured and patient resting comfortably and visiting with family at this time. PAtient a&ox4 and vss.
[2023-03-11 20:00] VITALS: BP 145/86; PULSE 92; RESP 18; TEMP 36.6; O2SAT 98
[2023-03-11] MEDS: CALCIUM CARBONATE 500MG CHEWTAB 1000 MG PO (23:28)
[2023-03-12] MEDS: ONDANSETRON 4MG/2ML VIAL 4 MG IV ×2 (03:49→09:23)
[2023-03-12] MEDS: HYDROMORPHONE 2MG/ML SYRINGE 2 MG IV ×2 (03:49→09:10)
[2023-03-12 03:56] VITALS: BP 130/84; PULSE 87; RESP 18; TEMP 36.5; O2SAT 97; BMI 21.1
[2023-03-12] MEDS: HEPARIN SODIUM 5,000 UNIT/ML VIAL 5000 UNIT SQ (05:39)
[2023-03-12] MEDS: HYDROCODONE/APAP 5/325 MG TABLET 1 TAB PO ×3 (05:45→16:56)
[2023-03-12 07:41] VITALS: BP 147/74; PULSE 91; RESP 18; TEMP 36.7; O2SAT 97
[2023-03-12] MEDS: VENLAFAXINE XR 75MG CAPSULE 75 MG PO (09:02)
[2023-03-12] MEDS: SODIUM CHLORIDE 0.9% 10ML VIAL 10 ML IV (09:02)
[2023-03-12] MEDS: PANTOPRAZOLE 40MG VIAL 40 MG IV (09:02)
[2023-03-12 15:19] VITALS: BP 122/65; PULSE 71; RESP 17; TEMP 36.8; O2SAT 97
--- NOTE | 2023-03-12 15:46 | EXP.DC.SUM ---
General Admission date:: 03/10/23 Discharge date: 03/12/23 HPI HPI HPI: Mr. Valdivia is a 37yo M with anxiety who presented to the ED via EMS for abdominal pain, nausea, vomiting and diarrhea. States symptoms all began this morning about 4 5 in the morning. Acute onset of pain in his left upper quadrant and he began to have nausea and vomiting both from feeling nauseous but also from the pain. Denies any previous illness in the past week. No known sick contacts. Does have a remote history of bleeding ulcer many years ago and history of cholecystectomy when he was 16 after phrenectomy (secondary to his ulcer). Was in his normal state of health yesterday. Denies drinking more than once a week. Smokes marijuana occasionally. Reports emesis was bilious but nonbloody. No bloody bowel movement. No coffee-ground emesis. Workup in the ER concerning for elevated lipase of 700, intractable nausea and vomiting, and significant abdominal pain. Ultrasound obtained showing no biliary dilatation. Medicine consulted for admission and further medical management of suspected pancreatitis. On arrival to the floor, patient has tremor, looks quite anxious. No active nausea at that moment after medications administered in the ER. Status post 2 L IV fluid in the ER. No other complaints at this time. Hospital Course Hospital Course Hospital Course: 37-year-old male who presents with nausea and vomiting. Concern for pancreatitis on workup in the ER. Discussed case with ER physician, request admission for IV fluids, pain management, bowel rest. Medicine agreed to admit for further management. Patient tremulous upon arriving to the floor, appears quite anxious. Anxiety addressed with one 0.5mg dose of Ativan. Initiated on IV fluids. Pancreatitis is hungry and tolerating diet, he is requesting dc his son has first birthday, he mentions all his pain is resolved and has no nausea, vomiting and wants to discharged. He was counselled on low fat diet and avoiding alcohol. he was also informed that if he has recurrent pain to come back to emergency dept. He verbalized understanding. He was given 2 days supply of pain meds for recurrent pain -Leukocytosis- likely reactive -Zofran 4 mg IV as needed every 6 hours for nausea/vomiting -LR at 125 cc an hour for total of 2 L. Generalized anxiety: Continue home Effexor 75 mg daily. Will give 1 dose Ativan 0.5 mg IV given acute anxiety and tremor. Concerned his anxiety is a component of his nausea. Exam Data for Last 24 hours Vital signs and Labs for Last 24 Hours: Temp Pulse Resp BP Pulse Ox O2 Del Method 98.3 F 71 17 122/65 97 Room Air 03/12/23 15:19 03/12/23 15:19 03/12/23 15:19 03/12/23 15:19 03/12/23 15:19 03/12/23 15:19 I & O for Last 24 hours: Intake & Output 03/09/23 03/10/23 03/11/23 03/12/23 23:59 23:59 23:59 23:59 Intake Total 390 / 390 2309 / 2309 973 / 973 Output Total 350 / 350 450 / 450 0 / 0 Balance 40 / 40 1859 / 1859 973 / 973 Weight 70.76 kg 70.71 kg 70.7 kg Constitutional Constitutional: no acute distress *Routine HEENT Exam Head: Present normocephalic Eye: Present EOMI and PERRL ENT: Present mucous membranes moist *Routine Neck Exam Neck: Present supple; Absent lymphadenopathy *Routine Respiratory Exam Respiratory: Present CTA bilaterally *Routine Cardiovascular Exam Cardiovascular: Present RRR *Routine Abdominal Exam Abdominal: Present soft and normoactive bowel sounds; Absent tenderness *Routine Extremities Exam Extremities: Absent cyanosis, clubbing or edema *Routine Skin Exam Skin: Present warm; Absent rash *Routine Neurological Exam Neurological: Present alert and oriented X3 DS: Diagnosis Discharge Diagnosis (1) Acute pancreatitis: Status: Acute Code(s): K85.90 - Acute pancreatitis without necrosis or infection, unspecified (2) Vomiting and diarrhea: Status: Acute Code(s): R11.10 - Vomiting, unspecified; R19.7 - Diarrhea, unspecified (3) Leukocytosis: Status: Acute Code(s): D72.829 - Elevated white blood cell count, unspecified (4) Generalized anxiety disorder: Status: Acute Code(s): F41.1 - Generalized anxiety disorder Meds Home Medications and Allergies Home Medications Medication Instructions Recorded Confirmed Type loratadine 10 mg tablet (Claritin) 10 mg PO DAILY Allergy Symptoms 03/10/23 03/10/23 History trazodone 50 mg tablet 50 mg PO HS Sleep 03/10/23 03/10/23 History venlafaxine 75 mg capsule,extended 75 mg PO DAILY Mood 03/10/23 03/10/23 History release 24 hr hydrocodone 5 mg-acetaminophen 325 1 tab PO Q8H PRN pain 2 days #6 03/12/23 Rx mg tablet tabs New Prescriptions to Start Prescriptions: hydrocodone-acetaminophen Dimas Kiseran Allergies Allergy/AdvReac Type Severity Reaction Status Date / Time Penicillins Allergy Verified 12/19/22 09:50 Sulfa (Sulfonamide Allergy Verified 12/19/22 09:50 Antibiotics) Discharge Plan Disposition Patient Disposition: Home, Self-Care Condition: Fair Follow up Plan Follow up with: Emery Landrum [Primary Care Provider] - 1 week Prescriptions/Medication Reconciliation: New hydrocodone-acetaminophen 5-325 mg tablet 1 tab PO Q8H PRN (Reason: pain) 2 Days Qty: 6 0RF Continued venlafaxine 75 mg capsule,extended release 24hr 75 mg PO DAILY trazodone 50 mg tablet 50 mg PO HS loratadine [Claritin] 10 mg Tablet 10 mg PO DAILY Problem Reconciliation Problems Reviewed?: Yes Patient Discharge Instructions ACTIVITY: Ambulate as tolerated DIET: low fat, low cholesterol Patient Instructions: DI for Pancreatitis Providers Primary Care Provider: Emery Landrum Admit Provider: Aroldo Cornelius Attending Provider: Aroldo Cornelius
--- NOTE | 2023-03-13 15:15 | CARE MANAGER ---
Called and spoke with patient regarding recent discharge. Patient stated he was able to get his prescription and was aware of scheduled f/u appt. He had no concerns or complaints at time of call.
== END 2023-03-12 17:28 | disposition home or self-care (01) ==
LOC: ER 12:59 → 2ND 13:25
PROVIDERS: Admitting Provider Internal Medicine Adolescent Medicine; Emergency Provider Emergency Medicine; PCP Family Medicine; Visit Provider Internal Medicine Adolescent Medicine
DX: K85.90 Acute pancreatitis without necrosis or infection, unspecified (principal); D72.829 Elevated white blood cell count, unspecified; R11.2 Nausea with vomiting, unspecified; F41.1 Generalized anxiety disorder; Z79.899 Other long term (current) drug therapy
CPT/HCPCS: 36415; 74177; 76705; 80053; 80061; 83605; 83615; 83690; 83735; 85007; 85025; 87040; 99285; G0378; J0131; J2405; Q9967

== ENCOUNTER 2023-05-09 15:22 | Outpatient (CLI) | payer OTHER, SELFPAY ==
[2023-05-09 15:46] LABS: Iron 120 ug/dL (49-181)
[2023-05-09 15:55] LABS: Total Iron Binding Capacity 315 ug/dL (261-462)
[2023-05-09 16:59] LABS: Triiodothryronine (T3) Uptake 38 % (23.5-40.5)
[2023-05-09 17:00] LABS: Free Thyroxine Index 2.4 ug/dL (5.93-13.13); T4 (Thyroxine) 6.4 ug/dl (5.53-11.0)
[2023-05-09 17:10] LABS: Hemoglobin A1C 5.1 % (4.0-6.0)
[2023-05-10 11:01] LABS: Thyroid Peroxidase Antibodies <9 IU/mL (0-34)
[2023-05-14 17:31] LABS: Free Testosterone (Direct) 36.3 pg/mL (8.7-25.1); Testosterone, Total, LC/MS 1685.7 ng/dL (264.0-916.0)
== END 2023-05-09 23:59 ==
LOC: LAB.DROPOF 15:23
PROVIDERS: PCP Family Medicine; Visit Provider Nurse Practitioner Psychiatric/Mental Health
DX: R53.83 Other fatigue (principal); R97.20 Elevated prostate specific antigen [PSA]; Z79.899 Other long term (current) drug therapy
CPT/HCPCS: 83036; 83540; 83550; 84436; 84443; 84479; 86376

== ENCOUNTER 2023-06-09 11:17 | Outpatient (CLI) | payer OTHER, SELFPAY ==
[2023-06-09 12:33] LABS: Alanine Aminotransferase 63 U/L (12-78); Albumin Level 4.7 g/dl (3.5-5.0); Alkaline Phosphatase 66 U/L (38-126); Aspartate Amino Transferase 61 U/L (17-59); Bilirubin,Direct 0.2 mg/dl (0.0-0.4); Bilirubin,Indirect 0.3 mg/dL (0.0-0.9); Bilirubin,Total 0.5 mg/dl (0.2-1.3); Bilirubin,Unconjugated 0.4 mg/dL (0.0-1.1); Chol/HDL Ratio 3.8 (1-3.5); Cholesterol 204 mg/dl (140-200); HDL Cholesterol 54 mg/dl (40-60); Total Protein,Serum 7.3 g/dl (6.3-8.2); Triglycerides 37 mg/dl (30-150); VLDL Cholesterol 7 mg/dL (0-40)
[2023-06-09 12:44] LABS: Direct LDL Cholesterol 134.93 mg/dL (100-129)
[2023-06-09 12:50] LABS: Free T4 (Free Thyroxine) 0.93 ng/dl (0.78-2.19)
== END 2023-06-09 23:59 | disposition home or self-care (01) ==
PROVIDERS: PCP Family Medicine; Visit Provider Nurse Practitioner
DX: R00.2 Palpitations (principal); R00.0 Tachycardia, unspecified; I20.89 Other forms of angina pectoris; R06.00 Dyspnea, unspecified; R94.31 Abnormal electrocardiogram [ECG] [EKG]; I73.9 Peripheral vascular disease, unspecified; R06.83 Snoring; R53.83 Other fatigue; Z87.898 Personal history of other specified conditions
CPT/HCPCS: 36415; 80061; 80076; 84439; 84443; 93270

== ENCOUNTER 2023-06-17 11:00 | Outpatient (CLI) | payer OTHER, SELFPAY ==
--- NOTE | 2023-06-17 11:08 | US_ITS ---
FINAL REPORT CLINICAL HISTORY: claudication COMPARISON: None FINDINGS: ANKLE-BRACHIAL PRESSURE INDICES Pressure indices are as follows: RIGHT LOWER EXTREMITY: Ankle-brachial pressure index: 1.2 Comments: Normal LEFT LOWER EXTREMITY: Ankle-brachial pressure index: 1.2 Comments: Normal IMPRESSION: No evidence of significant obstructive peripheral vascular disease of the lower extremities Reviewed, Interpreted and Dictated by Remi Michael III, MD Transcribed by [employer] Authenticated and [facility]
--- NOTE | 2023-06-17 11:08 | CA_ITS ---
APPROVED REPORT EXAM: Comprehensive 2D, Doppler, and color-flow Echocardiogram Produce Field Merchandiser: Keren Go RVT Ht: 6 ft 0 in Wt: 157lbs BSA: 1.92 BP: 133/80 mmHg Indications: TACHYCARDIA,CP,FATIGUE,MARTIN,HX IV DRUG USE SEVERAL YRS AGO TDS-PT BODY HABITUS LIMITED WINDOWS 2D Dimensions IVSd 0.77 cm M: 0.6-1.2 LVEF (Visual) 52.30 % PWd 0.97 cm M: 0.6 - 1.2 LVDd 3.97 cm M: 4.2 - 5.9 LVDs 2.92 cm M: 2.5 - 4.0 M-Mode Dimensions RVDd 2.21 cm (0.9-2.6) LA Diam 2.94 cm (1.9-4.0) LVDd 4.45 cm (3.5-5.7) IVSd 0.64 cm (0.6-1.1) PWd 0.64 cm (0.6-1.1) EDV (Teich) 90.10 mL LV Diastology E Decel Time 150 (160-240 msec) E/A Ratio 1.2 Aortic Valve ROGELIO Index 1.19 cm2/m2 AoV Peak Wilfrido. 110.0 (50-130 cm/s) AO Peak GR. 4.80 mmHg AO Mean GR. 2.30 (<5 mmHg) AO VTI 14.8 (18-25 cm) ROGELIO (VTI) 2.35 (2.5-4.5 cm2) Mitral Valve MV E Max Wilfrido. 57.0 (40-130 cm/s) MV A Velocity 47.0 (40-130 cm/s) E/A Ratio 1.21 MV PHT 44.0 ms Pulmonary Valve PV Peak Velocity 83.0 (50-150 cm/s) Tricuspid Valve TR P. Velocity 201.00 cm/s RAP Estimate 10.00 mmHg RVSP 26.10 mmHg Left Ventricle The left ventricle is normal size. Left ventricular systolic function is mild to moderately decreased. There is normal left ventricular wall thickness. There is mild to moderate global hypokinesis. There is severe hypokinesis of the inferior and inferoseptal LV foote. The septum is asynchronous. Grade 1 diastolic dysfunction is present. LVEF is 40%. Right Ventricle Right ventricle is mildly dilated. Right ventricle is mildly hypokinetic. Atria The left atrium size is normal. The right atrium size is normal. There is no Doppler evidence of interatrial shunt. Aortic Valve The aortic valve opens well. There is no aortic valvular stenosis. No aortic regurgitation is present. Mitral Valve The mitral valve is normal in structure. No evidence of mitral valve stenosis. Mild mitral regurgitation. Tricuspid Valve The tricuspid valve leaflets are thin and pliable. Mild tricuspid regurgitation. RVSP is 15-20 mmHg. Pulmonic Valve The pulmonary valve is normal in structure. Trace pulmonic regurgitation. Great Vessels The aortic root is normal in size. The ascending aorta is not well visualized. IVC is normal in size and collapses >50% with inspiration. Pericardium There is no pericardial effusion. Other Information Study Quality: Technically Difficult Conclusion Technically difficult study due to poor accoustic windows. Mild to moderate reduction in LV systolic function (LVEF 40%). Severe hypokinesis of the inferior and inferoseptal LV foote. Mild RV dilation with mild reduction in RV function. Mild MR, mild TR. In the setting of reduced LVEF, further evaluation with outpatient ischemic work-up and cardiac MRI (cardiomyopathy protocol) is recommended. Electronically signed by : Irais Booker MD 06/20/2023 19:53:17
--- NOTE | 2023-06-17 11:33 | NM_ITS ---
APPROVED REPORT Exam: Nuclear Stress Test Indication: chest pain...soa..palpitations Patient Location: Outpatient Stress Tech: Amanda Vasquez OR Tech:NAVJOT Benz RT(R)(N) Ht: 6 ft 0 in Wt: 165 lbs HR: 74 bpm BP: 138/61 mmHg BSA: 1.96 m2 TID: 1.07 History: chest pain...soa..palpitations Procedure: Patient exercised on Travis protocol 10:40 minutes and sec, resting heart rate 74 bpm, resting blood pressure 138/61 mmHg, with exercise maximum heart rate achived was 160 bpm which is 87 % of the maximum predicted heart rate and blood pressure was 160/88 mmHg. Test was stopped due to fatigue. Patient denied any complaint of chest pain. Patient has exercise capacity, achieved 12.8 METs of workload on treadmill, the blood pressure response to exercise was . Cardiac Stress and Resting SPECT Images: Cardiac Stress and Resting SPECT images were obtained using technetium 99m Myoview 31.2 mCi stress and 10.51 mCi at rest. Resting and stress imaging in supine and prone positions demonstrate a large sized, moderate, predominantly fixed perfusion defect in the inferior and inferoseptal LV foote. There is a small region of reversibility towards the septal wall. Gated imaging demonstrates moderate reduction in global LV systolic function. There is severe hypokinesis of the basal inferior LV wall. LVEF is calculated at 37%. Conclusion: Large sized, moderate, predominantly fixed perfusion defect in the inferior and inferoseptal LV foote. There is a small region of reversibility towards the septal wall. Gated imaging demonstrates moderate reduction in global LV systolic function. There is severe hypokinesis of the basal inferior LV wall. LVEF is calculated at 37%. Electronically signed by : Irais Booker MD 06/18/2023 13:01:59
[2023-06-17] MEDS: SODIUM CHLORIDE 0.9% 10ML SYR (RAD ONLY) 10 ML IV ×2 (13:43)
[2023-06-17] MEDS: ISOTOPE MYOVIEW (PER STUDY) 1 DOSE IV (13:43)
--- NOTE | 2023-06-17 15:05 | CA_ITS ---
APPROVED REPORT Exam: Exercise Treadmill Technologist: Amanda Vasquez Ht: 6 ft 0 in Wt: 151 lbs BSA: 1.89 m2 HR: 75 bpm BP: 138/61 mmHg Rhythm: NSR Indications: PVD, Tachycardia Medical History Medications: LoraTidine,,,,, Venlafaxine,,,,, Remeron,,,,, BisOPerol fumarate,,,,, Stress Test Details Test: Travis HR Resting HR: 74 bpm Max Heart Rate (APMHR): 183 bpm Max HR Achieved: 160 bpm Target HR (85% APMHR): 156 bpm % of APMHR: 87 Recovery HR: 103 bpm HR response to stress: Normal HR response to stress BP Resting BP: 138.0/61.0 mmHg Max BP: 160.0/88.0 mmHg Recovery BP: 134.0/79.0 mmHg BP response to stress: Normal blood pressure response to stress. ECG Resting ECG: Sinus rhythm Stress ECG: < 0.[address] depression Arrhythmia: None Clinical Exercise duration: 10:40 min Highest Stage Achieved: Exercise capacity: 12.8 METs Stress ECG Conclusion Symptoms: Dyspnea, Chest pain Arrhythmias/Ectopy: None ST-T Changes:< 0.[address] depression Conclusion: Difficult study. No ischemic ECG changes at peak stress. Myoview images are reported separately. Test Summary REST . . . . . . . Sitting REST 04:05 0.0 0.0 74 . 138/ 61 . . Stage 1 01:00 10.0 1.7 92 . . . . Stage 1 02:00 10.0 1.7 92 . . . . Stage 1 03:00 10.0 1.7 96 . 124/ 78 . . Stage 2 01:00 12.0 2.5 102 . . . . Stage 2 02:00 12.0 2.5 109 . . . . Stage 2 03:00 12.0 2.5 108 . 128/ 76 . . Stage 3 01:00 14.0 3.4 127 . . . . Stage 3 02:00 14.0 3.4 136 . . . . Stage 3 03:00 14.0 3.4 146 . 146/ 82 . . Stage 4 . . . . . . . Myoview Injected Stage 4 01:00 16.0 4.2 157 . . . . Stage 4 01:40 16.0 4.2 153 . . . Stop exercise at 10:40 RECOVERY 01:00 0.0 0.0 123 . 160/ 88 . . RECOVERY . . . . . . . Chest pain RECOVERY 02:00 0.0 0.0 120 . 160/ 88 . . RECOVERY 03:00 0.0 0.0 105 . 160/ 88 . . RECOVERY 04:00 0.0 0.0 102 . 139/ 68 . . RECOVERY 04:35 0.0 0.0 101 . 134/ 79 . . Electronically signed by : Irais Booker MD 06/18/2023 12:59:49
== END 2023-06-17 23:59 | disposition home or self-care (01) ==
LOC: RT 11:01
PROVIDERS: PCP Family Medicine; Visit Provider Nurse Practitioner
DX: R06.00 Dyspnea, unspecified (principal); I73.9 Peripheral vascular disease, unspecified; R00.0 Tachycardia, unspecified; I20.89 Other forms of angina pectoris; R00.2 Palpitations; R94.31 Abnormal electrocardiogram [ECG] [EKG]; R06.83 Snoring; R53.83 Other fatigue; Z87.898 Personal history of other specified conditions
CPT/HCPCS: 78452; 93017; 93018; 93306; 93923; A9502

== ENCOUNTER → 2023-07-03 08:27 | Outpatient (CLI) | payer OTHER, SELFPAY | LOC: SL 08:27 | PROVIDERS: PCP Family Medicine; Visit Provider Nurse Practitioner | DX: G47.33 Obstructive sleep apnea (adult) (pediatric) (principal) | CPT/HCPCS: G0399 ==

== ENCOUNTER 2023-07-16 07:38 | Day surgery (SDC) | payer OTHER, SELFPAY ==
[2023-07-16] VITALS (10 sets, daily range): BP systolic 83–157; BP diastolic 40–91; PULSE 53–72; RESP 16–20; O2SAT 96–100; BMI 21.2
--- NOTE | 2023-07-16 07:04 | IR_ITS ---
APPROVED REPORT Patient Location: Outpatient Spray Rig Operator: NAVJOT Wallace RT (R) PROCEDURES Left heart catheterization Left ventriculogram Selective coronary angiogram INDICATION Tachyarrhythmia, Abnormal stress test Informed consent was obtained prior to the procedure. COMPLICATIONS NONE Estimated Blood Loss: LESS THAN 10 ML TECHNIQUE One percent lidocaine used to anesthetize the right anterior aspect of the wrist. The right radial artery was accessed via the Seldinger technique. A 6 Guamanian sheath was placed in the right radial artery. 2.5 mg of Verapamil, 800 mcg of nitroglycerin, 1mg Lidocaine and 5000 U Heparin were given through the arterial sheath. The papa catheter was also used to perform left heart catheterization, left ventriculogram and selective coronary angiogram. At the end of the procedure the sheath was removed good hemostasis was achieved using Traclet band, patient was transferred to the postop holding area in stable condition. ANGIOGRAPHIC RESULTS The left main artery Normal The left anterior descending artery Normal The circumflex artery Normal The right coronary artery Dominant normal The MOORE ventriculogram reveals Normal 65% The left ventricular end-diastolic pressure 15 mmHg IMPRESSION Normal coronary arteries Normal ejection fraction Normal LVEDP PLAN 1. Continue evaluation of nonischemic tachyarrhythmia Electronically signed by : Saqib Rodríguez MD 07/16/2023 10:17:46
[2023-07-16] MEDS: ONDANSETRON 4MG/2ML VIAL 4 MG IV (08:22)
[2023-07-16 08:34] LABS: Basophils # 0.1 K/mm3 (0-0.2); Basophils % 1.4 % (0.1-2.0); Eosinophils # 0.4 K/mm3 (0.0-0.4); Eosinophils % 4.8 % (0.1-12.0); Hematocrit 52.7 % (42.0-52.0); Hemoglobin 17.1 g/dL (14.1-18.0); Lymphocytes # 1.6 K/mm3 (0.7-4.5); Lymphocytes % 21.5 % (10-50); Mean Corpuscular HGB Conc 32.5 g/dL (31.8-35.4); Mean Corpuscular Volume 98.4 fl (80-94); Mean Platelet Volume 7.7 fl (7.4-10.4); Monocytes # 0.6 K/mm3 (0.1-1.0); Monocytes % 8.3 % (1.7-9.3); Neutrophils # 4.6 K/mm3 (1.8-7.8); Neutrophils % 63.9 % (37.0-80.0); Platelet Count 247 K/mm3 (142-424); Red Blood Count 5.36 M/mm3 (4.60-6.20); Red Cell Distribution Width 13.6 % (11.5-17.5); White Blood Count 7.3 K/mm3 (4.8-10.8)
[2023-07-16 08:41] LABS: Chloride 101 mmol/L (98-107)
[2023-07-16 08:42] LABS: Potassium 4.1 mmoL/L (3.5-5.1); Sodium 138 mmol/L (136-145)
[2023-07-16 08:44] LABS: Blood Urea Nitrogen 23 mg/dl (9-20); Creatinine Clearance Estimated 85 mL/min (50-200); Estimated Glomerular Filt Rate 68 ml/min (>60); GFR (African American) 82 ML/MIN (>60)
[2023-07-16 08:45] LABS: Anion Gap 11.1 mEq/L (5-15); Calcium 9.6 mg/dl (8.4-10.2); Carbon Dioxide 30 mmol/L (22.0-30.0); Glucose 90 mg/dl (74-100)
[2023-07-16] MEDS: diphenhydrAMINE 50MG/ML VIAL 50 MG IV (09:33)
[2023-07-16] MEDS: LIDOCAINE 1% 10ML MDV 20 ML IJ (09:33)
[2023-07-16] MEDS: VERAPAMIL 2.5MG/ML 2ML VIAL 2.5 MG IV (09:33)
[2023-07-16] MEDS: 0.9 % SODIUM CHLORIDE 500 ML 25 ML IV (09:33)
[2023-07-16] MEDS: NITROGLYCERIN 800MCG/8ML SYR (CATH LAB) 800 MCG IA (09:33)
[2023-07-16] MEDS: HEPARIN 1,000 UNITS/500ML NS (CATH LAB) 3000 UNIT IV (09:33)
[2023-07-16] MEDS: MIDAZOLAM HCL 1MG/1ML 5ML VIAL 1 MG IV (09:58)
[2023-07-16] MEDS: PROMETHAZINE HCL 25MG/ML 1ML VIAL 25 MG IV (09:59)
[2023-07-16] MEDS: FENTANYL 100MCG/2ML VIAL 50 MCG IV (09:59)
[2023-07-16] MEDS: IOPAMIDOL-370 (76%);100ML BOTTLE 50 ML IV (11:53)
== END 2023-07-16 12:52 | disposition home or self-care (01) ==
PROVIDERS: Visit Provider Internal Medicine
DX: I20.89 Other forms of angina pectoris (principal); Z87.898 Personal history of other specified conditions; I50.20 Unspecified systolic (congestive) heart failure; R94.31 Abnormal electrocardiogram [ECG] [EKG]; Z79.899 Other long term (current) drug therapy; R94.39 Abnormal result of other cardiovascular function study
CPT/HCPCS: 80048; 85025; 93458; 99152; C1725; C1769; J1644; J2405; Q9967

== ENCOUNTER 2023-07-28 09:46 | Outpatient (CLI) | payer OTHER, SELFPAY ==
--- NOTE | 2023-07-28 09:47 | MR_ITS ---
APPROVED REPORT Operating Engineer Apprentice: CLINICAL INDICATION LVEF 40% on TTE, evaluation for cardiomyopathy TECHNIQUE Image Acquisition: Cardiac magnetic resonance (CMR) was performed on Siemens Espree MRI 1.5T scanner. Software platform sequences were performed using the Siemens Optosecurity MR B19 platform. A set of three-plane, low-resolution, large [id number] localizers were initially acquired. Then axial, coronal, sagittal TrueFISP, as well as axial HASTE images, were obtained. These were followed by gated TrueFISP breathold cinematic sequences obtained in the short axis with 8 mm slices and 2 mm gaps, 2-chamber (vertical long axis), 3-chamber, 4-chamber (horizontal long axis). A bolus of contrast was injected intravenously with first-pass sequences obtained in the short axis and four-chamber planes. After approximately 10 minutes, a TI trade union secretary sequence was performed to determine the optimal TI time. Using the optimized TI time, delayed contrast enhancement segmented inversion???recovery TurboFLASH sequences were obtained in the short axis, 2-chamber, 3-chamber, and 4-chamber projections. 2D-velocity phase mapping was performed. Functional parameters were calculated by offline analysis on an independent workstation ([employer] Platform, [employer]). Contrast: ProHance??? (Gadoteridol) FINDINGS MORPHOLOGY AND FUNCTION Left ventricle: The left ventricle is normal in size. The indexed left ventricular end-diastolic volume (LVEDVi) is 96 ml/m2 (reference range 57-105 ml/m2 in males, 56-96 ml/m2 in females). There is low-normal left ventricular systolic function. There is normal left ventricular wall thickness. There are no regional wall motion abnormalities noted. LVEF is calculated at 51.8% (reference range 57-77%). Right ventricle: The right ventricle is mildly dilated. The indexed right ventricular end-diastolic volume (RVEDVi) is 118 ml/m2 (reference range 61-121 ml/m2 in males, 48-112 ml/m2 in females). There is mild reduction in right ventricular systolic function. RVEF is calculated at 41.0% (reference range 52-72% in males, 51-71% in females). Atria: The left atrium is normal in size. The maximum indexed left atrial volume is 35 ml/m2 (reference range 26-52 ml/m2 in males, 27-53 ml/m2 in females). The right atrium is normal in size. The maximum indexed right atrial volume is 54 ml/m2 (reference range 18-90 ml/m2). Aorta: The diameter of the aortic annulus is normal, measuring 26 mm (coronal view reference range 21-30 mm in males, 19-27 mm in females). The diameter of the aortic sinus is normal, measuring 32 mm (coronal view reference range 25-42 mm in males, 24-36 mm in females). The diameter of the sinotubular junction is normal, measuring 26 mm (coronal view reference range 18-32 mm in males, 18-28 mm in females). The diameters of the ascending and descending thoracic aorta are normal. Main pulmonary artery: The main pulmonary artery diameter is normal. Pericardium: The pericardial thickness is normal. The pericardial thickness measures 1.5 mm (normal < 4.0 mm). There is no pericardial effusion. VALVES The valvular morphologies in the visualized sequences appear normal. There is no significant valvular stenosis or regurgitation of the mitral, aortic, tricuspid, or pulmonic valve noted visually. Systolic anterior motion of the mitral valve is not visualized. Ratio of pulmonary to systemic flow, Qp:Qs ratio = 1.9 (normal < or = 1.2, hemodynamically significant shunt > 1.5), demonstrating possible evidence of hemodynamically significant shunt. TISSUE CHARACTERIZATION Resting Perfusion: Normal myocardial blood flow at rest. No evidence of resting hypoperfusion. Myocardial Fibrosis and/or edema: Normal gadolinium kinetics are present. No evidence of late gadolinium enhancement is noted, consistent with absence of myocardial scarring, infarction, or necrosis. T2-weighted imaging demonstrates no evidence of myocardial edema or inflammation. OTHER No other significant findings are noted. However, this exam is focused on the cardiac structure and function. IMPRESSION Normal LV size with low-normal LV systolic function. LVEDVi= 96 ml/m2 and LVEF= 51.8%. Mild RV size with mild reduction in RV systolic function. RVEDVi= 118 ml/m2 and RVEF= 41.0%. No atrial enlargement. No CMR evidence of myocardial scarring, infarction, or necrosis. No evidence of myocardial edema or inflammation. Perfusion analysis demonstrates normal blood flow at rest with no evidence of resting hypoperfusion. Ratio of pulmonary to systemic flow, Qp:Qs ratio = 1.9 (normal < or = 1.2, hemodynamically significant shunt > 1.5), demonstrating possible evidence of hemodynamically significant shunt. This CMR demonstrates low-normal LV systolic function (LVEF 52%) with mild RV dysfunction. Qp:Qs > 1.5, suggestive of possible hemodynamically significant interatrial shunt. In the setting of young age, RV dysfunction, and abnormal Qp:Qs ratio, further evaluation with ROBYN + bubble study to rule out interatrial shunt is recommended. COMPARISON None CRITICAL RESULT None COMMUNICATION Per this written report The findings of this cardiac MR were reviewed, reported, and signed by Mathew Booker MD (Hot Tar Roofer). Conclusion Electronically signed by : Irais Booker MD 08/04/2023 23:41:10
[2023-07-28] MEDS: SODIUM CHLORIDE 0.9% 10ML SYR (RAD ONLY) 10 ML IV (11:43)
[2023-07-28] MEDS: GADOTERIDOL INJ 20ML SYRINGE 16 ML IV (11:43)
== END 2023-07-28 23:59 | disposition home or self-care (01) ==
LOC: RAD 09:47
PROVIDERS: PCP Nurse Practitioner; Visit Provider Nurse Practitioner
DX: R94.31 Abnormal electrocardiogram [ECG] [EKG] (principal); I50.20 Unspecified systolic (congestive) heart failure; R00.2 Palpitations; R00.0 Tachycardia, unspecified
CPT/HCPCS: 75561; A9576

== ENCOUNTER 2023-09-30 14:32 | Outpatient (POV) | payer OTHER, SELFPAY | END 2023-09-30 23:59 | disposition home or self-care (01) | LOC: SC 14:33 | PROVIDERS: Visit Provider Specialist/Technologist | DX: Z00.00 Encounter for general adult medical examination without abnormal findings (principal) ==

== ENCOUNTER 2023-10-10 14:47 | Outpatient (CLI) | payer OTHER, SELFPAY ==
--- NOTE | 2023-10-10 14:48 | CT_ITS ---
FINAL REPORT CLINICAL HISTORY: history of nasal polyps; sinusitis COMPARISON: None FINDINGS: CT SINUSES: Mild bilateral maxillary sinus mucoperiosteal thickening is noted. There is also soft tissue thickening present in the left sphenoid sinus. There is a small amount of soft tissue bridging the right ostiomeatal unit, while the left OMU is patent. The mastoid air cells are hypoplastic bilaterally. There is no fracture. There are no air-fluid levels. IMPRESSION: Mild bilateral maxillary sinus mucoperiosteal thickening, with a small amount of soft tissue bridging the right OMU. The left OMU is patent. Soft tissue thickening left sphenoid sinus. Reviewed, Interpreted and Dictated by Harshal Chaudhary MD Transcribed by Loretta Álvarez Authenticated and [facility]
== END 2023-10-10 23:59 | disposition home or self-care (01) ==
LOC: RAD 14:48
PROVIDERS: PCP Family Medicine; Visit Provider Otolaryngology
DX: R09.81 Nasal congestion (principal)
CPT/HCPCS: 70486

== ENCOUNTER 2023-10-15 09:21 | Day surgery (SDC) | payer OTHER, SELFPAY ==
[2023-10-10 14:57] VITALS: BMI 22.4
[2023-10-15] VITALS (11 sets, daily range): BP systolic 107–151; BP diastolic 50–71; PULSE 50–85; RESP 16–18; TEMP 36.5; O2SAT 91–100; BMI 22.4
[2023-10-15 09:56] LABS: Basophils # 0.1 K/mm3 (0-0.2); Basophils % 0.9 % (0.1-2.0); Eosinophils # 0.3 K/mm3 (0.0-0.4); Eosinophils % 3.9 % (0.1-12.0); Hematocrit 48.1 % (42.0-52.0); Hemoglobin 15.6 g/dL (14.1-18.0); Lymphocytes # 1.7 K/mm3 (0.7-4.5); Lymphocytes % 20.1 % (10-50); Mean Corpuscular HGB Conc 32.5 g/dL (31.8-35.4); Mean Corpuscular Hemoglobin 31.8 pg (27.0-31.2); Mean Corpuscular Volume 97.7 fl (80-94); Mean Platelet Volume 7.8 fl (7.4-10.4); Monocytes # 0.6 K/mm3 (0.1-1.0); Monocytes % 6.6 % (1.7-9.3); Neutrophils # 5.8 K/mm3 (1.8-7.8); Neutrophils % 68.5 % (37.0-80.0); Platelet Count 255 K/mm3 (142-424); Red Blood Count 4.92 M/mm3 (4.60-6.20); Red Cell Distribution Width 13.5 % (11.5-17.5); White Blood Count 8.5 K/mm3 (4.8-10.8)
--- NOTE | 2023-10-15 09:57 | ECG_ITS ---
APPROVED REPORT Exam: Resting ECG HR:54 bpm ECG Measurements Heart Rate 54 AXES IN 110 P 33 QRSd 99 QRS 76 QT 385 T 56 QTc 371 Conclusion SINUS BRADYCARDIA WITH SHORT IN INTERVAL BORDERLINE ECG UNCONFIRMED REPORT Electronically signed by : Mike Barajas MD 10/17/2023 08:48:15
[2023-10-15 10:03] LABS: Chloride 104 mmol/L (98-107); Potassium 4.4 mmoL/L (3.5-5.1); Sodium 139 mmol/L (136-145)
[2023-10-15 10:06] LABS: Anion Gap 8.4 mEq/L (5-15); Blood Urea Nitrogen 16 mg/dl (9-20); Carbon Dioxide 31 mmol/L (22.0-30.0); Creatinine Clearance Estimated 107 mL/min (50-200); Estimated Glomerular Filt Rate 84 ml/min (>60); GFR (African American) 102 ML/MIN (>60); Glucose 101 mg/dl (74-100)
[2023-10-15 10:09] LABS: Activated Partial Thrombo Time 25.3 seconds (22.8-30.6); INR 0.89 (0.9-1.1); Prothrombin Time 10.1 seconds (10.1-12.5)
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
--- NOTE | 2023-10-15 11:23 | XR_ITS ---
FINAL REPORT CLINICAL HISTORY: post ROBYN COMPARISON: None FINDINGS: A single portable view of the chest was obtained. The heart size and pulmonary vascularity are within normal limits. The mediastinum is within normal limits. No acute pulmonary abnormality is identified. The bony thorax is intact. IMPRESSION: No active cardiopulmonary disease. Reviewed, Interpreted and Dictated by Remi Michael III, MD Transcribed by Kristen Molina Authenticated and [facility]
--- NOTE | 2023-10-15 11:37 | CT_ITS ---
FINAL REPORT TECHNIQUE: Thin section axial CT images with coronal and sagittal reformats were performed through the neck. This study was performed with techniques to keep radiation doses as low as reasonably achievable (ALARA). Individualized dose reduction techniques using automated exposure control or adjustment of mA and/or kV according to the patient's size were employed. CLINICAL HISTORY: post ROBYN COMPARISON: None FINDINGS: No adenopathy or mass lesion is present . Salivary glands are normal. Larynx is unremarkable. The oropharynx, nasopharynx, and hypopharynx are unremarkable. The salivary glands appear unremarkable. Thyroid gland is unremarkable. No retropharyngeal fluid collection or air is seen. There is opacification of multiple ethmoid air cells. IMPRESSION: No acute process. Opacification of multiple ethmoid air cells is present. Reviewed, Interpreted and Dictated by Remi Michael III, MD Transcribed by Loretta Álvarez Authenticated and [facility]
[2023-10-15] MEDS: KETOROLAC 30MG/ML VIAL 30 MG IV (12:53)
--- NOTE | 2023-10-15 13:35 | SUR.PHASEII ---
1108: Pt to post op with Wale Morrissey CRNA at bedside. Oral suction applied. Thick pink secretions noted. Dr. Booker notified and chest xray ordered. Verbal order to keep patient for at least [address] of neck if patient complains of pain. Vss at this time.
--- NOTE | 2023-10-15 13:38 | SUR.PHASEII ---
1330: CT preliminary reported to Dr. Booker. Ok to discharge home. Pt back to baseline and tolerating oral intake.
== END 2023-10-15 13:39 | disposition home or self-care (01) ==
PROVIDERS: Visit Provider Internal Medicine
DX: R53.83 Other fatigue (principal); Z53.09 Procedure and treatment not carried out because of other contraindication
CPT/HCPCS: 70490; 71045; 80048; 85025; 85610; 85730; 93005; 93270; 93312; 93319; J1885; J2250

== ENCOUNTER 2023-11-19 09:39 | Day surgery (SDC) | payer OTHER, SELFPAY ==
[2023-11-18 13:45] VITALS: BMI 21.1
[2023-11-19] VITALS (9 sets, daily range): BP systolic 102–123; BP diastolic 43–83; PULSE 50–73; RESP 16–22; TEMP 36.3–37; O2SAT 97–100
--- NOTE | 2023-11-19 10:05 | CA_ITS ---
APPROVED REPORT EXAM: Comprehensive 2D, Doppler, and color-flow Echocardiogram Environmental Department Manager: RT Tyra(R) Ht: 6 ft 0 in Wt: 156lbs BSA: 1.92 BP: 104/59 mmHg Indications: UBALDO, hx of IV druse use disorder, RV dilation on TTE and CMR Procedure After obtaining informed consent, patient underwent transesophageal echo in the OP Surgery Suite. Type of Sedation : General Anesthesia Sedation was administered by Cm Fletcher C.R.N.AGm Sedation start time: 12:35 Case end Time: 13:10 Transesophageal probe was inserted and advanced into esophagus without difficulty by Dr Mathew Booker. Echo enhancement agent administered: Agitated Saline The ROBYN was performed without complications. Throughout the procedure, the blood pressure, pulse oximetry, cardiac rhythm, and rate were monitored. The patient tolerated the procedure without adverse effects. Recovery from conscious sedation was uneventful and vital signs were stable. Left Ventricle The left ventricle is normal size. The left ventricular systolic function is normal. The left ventricular ejection fraction is within the normal range. There is normal left ventricular wall thickness. There is normal LV segmental wall motion. The left ventricular diastolic function is normal. LVEF is 55%. Right Ventricle The right ventricle is borderline dilated. The right ventricular systolic function is mildly reduced. Atria The left atrium size is normal. No thrombus is visualized in the left atrium or appendage. The right atrium size is normal. Small PFO is noted. The PFO tunnel length is approximately 0.7 cm, tunnel width is 0.1 cm. Agitated saline administration demonstrates migration of bubbles from the right atrium into the left atrium, confirming the presence of PFO. Color Doppler demonstrates intermittent left to right interatrial shunt. Aortic Valve The aortic valve opens well. The aortic valve is trileaflet. There is no aortic valvular stenosis. No aortic regurgitation is present. Mitral Valve The mitral valve is normal in structure. No evidence of mitral valve stenosis. Trace mitral regurgitation. Tricuspid Valve The tricuspid valve leaflets are thin and pliable. Trace tricuspid regurgitation. There is insufficient TR jet to estimate RVSP. Pulmonic Valve The pulmonary valve is normal in structure. Trace pulmonic regurgitation. Great Vessels The aortic root is normal in size. The ascending aorta is normal in size. Pericardium There is no pericardial effusion. Other Information Study Quality: Fair Conclusion The patient underwent ROBYN under elective general anesthesia due to difficulty in advancing the ROBYN probe during a previous attempt. The patient is known to have difficult neck anatomy with a leftward deviated esophagus. Overall, the patient tolerated the procedure well with no complications. Post procedurally, he remained asymptomatic. He was eventually discharged same day in stable condition. Normal LV systolic function. Borderline LV dilation with mild reduction in RV function. Small PFO is noted. The PFO tunnel length is approximately 0.7 cm, tunnel width is 0.1 cm. Agitated saline administration demonstrates migration of bubbles from the right atrium into the left atrium, confirming the presence of PFO. Color Doppler demonstrates intermittent left to right interatrial shunt. In the setting of small PFO with intermittent shunting but with presence of RV dysfunction, further evaluation to rule out alternative etiologies of RV dilation (namely UBALDO in the setting) is suggested first prior to proceeding with PFO closure. Electronically signed by : Irais Booker MD 11/20/2023 01:48:35
--- NOTE | 2023-11-19 10:32 | ECG_ITS ---
APPROVED REPORT Exam: Resting ECG HR:46 bpm ECG Measurements Heart Rate 46 AXES LA 99 P -17 QRSd 102 QRS 75 QT 416 T 53 QTc 373 Conclusion SINUS BRADYCARDIA WITH SHORT LA INTERVAL BORDERLINE ECG UNCONFIRMED REPORT Electronically signed by : Mike Barajas MD 11/21/2023 09:17:18
[2023-11-19 10:47] LABS: Basophils # 0.1 K/mm3 (0-0.2); Basophils % 1.4 % (0.1-2.0); Eosinophils # 0.2 K/mm3 (0.0-0.4); Hematocrit 44.1 % (42.0-52.0); Hemoglobin 15.6 g/dL (14.1-18.0); Lymphocytes # 1.2 K/mm3 (0.7-4.5); Lymphocytes % 27.7 % (10-50); Mean Corpuscular HGB Conc 35.3 g/dL (31.8-35.4); Mean Corpuscular Hemoglobin 32.3 pg (27.0-31.2); Mean Corpuscular Volume 91.6 fl (80-94); Mean Platelet Volume 7.8 fl (7.4-10.4); Monocytes # 0.3 K/mm3 (0.1-1.0); Monocytes % 7.4 % (1.7-9.3); Neutrophils # 2.6 K/mm3 (1.8-7.8); Neutrophils % 59.4 % (37.0-80.0); Platelet Count 206 K/mm3 (142-424); Red Blood Count 4.82 M/mm3 (4.60-6.20); Red Cell Distribution Width 13.5 % (11.5-17.5); White Blood Count 4.4 K/mm3 (4.8-10.8)
[2023-11-19 10:54] LABS: INR 0.91 (0.9-1.1); Prothrombin Time 10.3 seconds (10.1-12.5)
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
--- NOTE | 2023-11-19 13:28 | EXP.ANES.I ---
[facility] Anesthesia Record Part I Anesthesia Record I Intake, IV Amount: 1,000 Hydration: Adequate Estimated blood loss (mL): 0 Urine output (mL): 0 Blood Products used (#): none Blood Pressure: 117/67 SaO2: 97 Pulse Rate: 73 Airway Patency: Patent Respiratory Rate: 22 Temperature: 98.6 F Patient is:: Drowsy and Stable Stable to PACU at:: 13:13
--- NOTE | 2023-11-20 13:20 | P.PNANES_ITS ---
[facility] Anesthesia Record Part II Anesthesia Record Part II Discharge Time: 13:43 Destination: Surgical Day Care (OP Surgery) PACU nurse assessment reviewed?: Yes Patient Condition:: Good Anesthesia Complications:: None Swallowing reflex intact?: Yes Airway Patency: Patent Cyanosis?: No Blood Pressure: 123/83 SaO2: 99 Respiratory Rate: 17 Pulse Rate: 50 Temperature: 98.1 F Mental Status: Alert & Oriented Pain level:: 0 Nausea and/or vomitting:: None Intake, IV Amount: 0 Hydration: Adequate
[2023-11-20 13:21] VITALS: BP 123/83; PULSE 50; RESP 17; TEMP 36.7; O2SAT 99
== END 2023-11-19 10:09 | disposition home or self-care (01) ==
PROVIDERS: PCP Family Medicine; Visit Provider Internal Medicine
DX: I50.20 Unspecified systolic (congestive) heart failure (principal); Q24.8 Other specified congenital malformations of heart; Z79.899 Other long term (current) drug therapy
CPT/HCPCS: 85025; 85610; 93005; 93270; 93312; 93319; J3490; J1100; J2250; J2405; J3010; J7120

== ENCOUNTER 2023-11-24 07:20 | Day surgery (SDC) | payer OTHER, SELFPAY ==
[2023-11-24] VITALS (9 sets, daily range): BP systolic 100–135; BP diastolic 48–70; PULSE 53–74; RESP 14–18; TEMP 36.3–36.7; O2SAT 99–100; BMI 21.1
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
[2023-11-24] MEDS: LACTATED RINGERS 1000ML 1,000 ML 25 ML IV (07:52)
[2023-11-24] MEDS: OXYMETAZOLINE NASAL SPRAY 0.05% 15ML 2 ML NS (09:29)
[2023-11-24] MEDS: CLINDAMYCIN PHOSPHATE/D5W 900 MG/50 ML PIGGYBACK 100 MG IV (09:35)
[2023-11-24] MEDS: OXYMETAZOLINE NASAL SPRAY 0.05% 15ML 15 ML NS (09:50)
[2023-11-24] MEDS: 0.9 % SODIUM CHLORIDE 100 ML 10 ML IV (09:50)
[2023-11-24] MEDS: LIDOCAINE 1% W/EPI 1:100,000 20ML VIAL 40 ML (09:50)
[2023-11-24] MEDS: MUPIROCIN 2% OINTMENT 22GM TUBE 22 GM TP (09:50)
[2023-11-24] MEDS: HYDROMORPHONE 2MG/ML SYRINGE 0.5 MG IV (10:40)
--- NOTE | 2023-11-24 10:43 | P.PNANES_ITS ---
[facility] Anesthesia Record Part I Anesthesia Record I Intake, IV Amount: 900 Hydration: Adequate Estimated blood loss (mL): 20 Urine output (mL): 0 Blood Pressure: 134/70 SaO2: 100 Pulse Rate: 74 Airway Patency: Patent Respiratory Rate: 14 Temperature: 97.3 F Patient is:: Awake Stable to PACU at:: 10:42
--- NOTE | 2023-11-24 10:43 | P.OP_ITS ---
Date of procedure: 11/24/23 Pre-op Diagnosis:: Nasal airway obstruction Left inferior turbinate hypertrophy Right-sided nasal septal deviation Post-op Diagnosis:: Same Procedure performed:: 1. Septoplasty 2. Submucous resection inferior turbinate left 3. Reduction of left middle turbinate gabo bullosa Surgeon:: Irwin Bolton III, MD SOFTWARE APPLICATION TESTER:: Adelina Roldan Anesthesia: GETA Estimated blood loss (mL): 15 Operative findings:: Severe right septal deviation with displacement of the premaxillary crest, left middle turbinate gabo bullosa, left inferior turbinate hypertrophy Operative note:: The patient was brought to the operating room placed for general endotracheal anesthesia. Topical Afrin had been applied preoperatively to the nose. Afrin and lidocaine soaked cottonoids were placed within the nose bilaterally. He was placed in the lounge chair position and the cottonoids were removed. Injection of 1% lidocaine with epinephrine was injected along the septal mucosa and the inferior turbinate. There is noted that the left middle turbinate was hypertrophied as was the inferior turbinate. Began the dissection on the left side of the septum as he had a slight displacement of the caudal and the left. Hemitransfixion incision was made along the left caudal end. I then dissected on the left side of the septum including the cartilage and bone in the submucoperichondrial plane. We isolated the osteocartilaginous junction and made incision here. I then was able to make it posterior right submucoperichondrial tunnel was able to fracture the posterior bony defect back to the midline and removed portion of the cartilage and bone. The premaxillary crest was in proper position but the right side of the septum had been displaced. I did remove an inferior strip of quadrangular cartilage to allow this to return back towards the midline. A mucosal dehiscence was created on the right side, this was left open for drainage purposes. I did replace 1 straight piece of ethmoid bone back in the intraseptal space. Needs incision was then closed using a 5-0 chromic suture. A quilting stitch of 4-0 plain gut was then placed through and through septal mucosa. 2 Valdivia splints were cut to size and sutured in place with a 3-0 nylon suture. At this point the 2 mm turbinate shaver blade was used to make an incision at the head of the middle turbinate this was reduced using the microdebrider with the 2 mm turbinate shaver blade. A similar procedure was done on the left inferior turbinate at the anterior portion of the turbinate and then midway along the posterior aspect. Turbinate was then outfractured. Mupirocin ointment was used as a topical dressing. Patient stomach contents were aspirated clear. He was then awakened in the operating taken recovery condition, estimated blood loss less than 20 mL Condition: stable Disposition: PACU Complications:: none
--- NOTE | 2023-11-25 07:34 | P.PNANES_ITS ---
[facility] Anesthesia Record Part II Anesthesia Record Part II Discharge Time: 11:10 Destination: Surgical Day Care (OP Surgery) PACU nurse assessment reviewed?: Yes Patient Condition:: Good Anesthesia Complications:: None Swallowing reflex intact?: Yes Airway Patency: Patent Cyanosis?: No Blood Pressure: 100/57 SaO2: 100 Respiratory Rate: 18 Pulse Rate: 59 Temperature: 97 F Mental Status: Alert & Oriented Pain level:: 5 Nausea and/or vomitting:: None Intake, IV Amount: 0 Hydration: Adequate
[2023-11-25 07:35] VITALS: BP 100/57; PULSE 59; RESP 18; TEMP 36.1; O2SAT 100
== END 2023-11-24 11:39 | disposition home or self-care (01) ==
PROVIDERS: PCP Family Medicine; Visit Provider Otolaryngology
PROC: (CPT 30520; principal; 2023-11-24 08:45)
DX: J34.89 Other specified disorders of nose and nasal sinuses (principal); J34.3 Hypertrophy of nasal turbinates; J34.2 Deviated nasal septum
CPT/HCPCS: 30520; 30140; 30999; 96374; J1100; J1171; J2250; J2405; J3010; J7120

== ENCOUNTER 2023-12-11 11:03 | Outpatient (CLI) | payer OTHER, SELFPAY ==
--- NOTE | 2023-12-11 11:03 | US_ITS ---
PROCEDURE INFORMATION: Exam: US Soft Tissue Head and Neck, Thyroid Exam date and time: 12/11/2023 11:02 AM Age: 38 years old Clinical indication: Other: Goiter; Additional info: H/o goiter TECHNIQUE: Imaging protocol: Real-time ultrasound scan of the neck with image documentation. Exam focused on the thyroid. COMPARISON: CT SOFT TISSUE NECK WO CON 10/15/2023 11:47 AM FINDINGS: Right thyroid lobe: Right thyroid lobe measures 10.9 x 5.5 x 2.1 cm. Left thyroid lobe: Left thyroid lobe measures 8.7 x 5.5 x 2.2 cm. Isthmus: No nodules. Other findings: The gland appears mildly hypervascular. IMPRESSION: Enlarged and mildly hypervascular thyroid gland may reflect thyroiditis. No nodules are identified.
== END 2023-12-11 23:59 | disposition home or self-care (01) ==
LOC: RAD 11:03
PROVIDERS: PCP Family Medicine; Visit Provider Nurse Practitioner
DX: E04.2 Nontoxic multinodular goiter (principal)
CPT/HCPCS: 76536

== ENCOUNTER 2024-01-30 15:09 | Outpatient (CLI) | payer OTHER, SELFPAY ==
[2024-01-30 15:53] LABS: Basophils # 0.1 K/mm3 (0-0.2); Eosinophils # 0.2 K/mm3 (0.0-0.4); Eosinophils % 3.8 % (0.1-12.0); Hematocrit 41.7 % (42.0-52.0); Hemoglobin 14.4 g/dL (14.1-18.0); Lymphocytes # 1.4 K/mm3 (0.7-4.5); Mean Corpuscular HGB Conc 34.5 g/dL (31.8-35.4); Mean Corpuscular Hemoglobin 31.4 pg (27.0-31.2); Mean Platelet Volume 9.8 fl (7.4-10.4); Monocytes # 0.5 K/mm3 (0.1-1.0); Monocytes % 8.6 % (1.7-9.3); Neutrophils # 3.2 K/mm3 (1.8-7.8); Neutrophils % 60.4 % (37.0-80.0); Platelet Count 241 K/mm3 (142-424); Red Blood Count 4.58 M/mm3 (4.60-6.20); Red Cell Distribution Width 12.5 % (11.5-17.5); White Blood Count 5.2 K/mm3 (4.8-10.8)
[2024-01-30 16:14] LABS: Alanine Aminotransferase 47 U/L (12-78); Albumin Level 4.6 g/dl (3.5-5.0); Alkaline Phosphatase 64 U/L (38-126); Anion Gap 10.1 mEq/L (5-15); Aspartate Amino Transferase 46 U/L (17-59); Bilirubin,Direct 0.4 mg/dl (0.0-0.4); Bilirubin,Indirect 0.4 mg/dL (0.0-0.9); Bilirubin,Total 0.8 mg/dl (0.2-1.3); Bilirubin,Unconjugated 0.4 mg/dL (0.0-1.1); Blood Urea Nitrogen 20 mg/dl (9-20); Calcium 9.7 mg/dl (8.4-10.2); Carbon Dioxide 29 mmol/L (22.0-30.0); Chloride 103 mmol/L (98-107); Chol/HDL Ratio 3.9 (1-3.5); Cholesterol 216 mg/dl (140-200); Estimated Glomerular Filt Rate 84 ml/min (>60); GFR (African American) 102 ML/MIN (>60); Glucose 113 mg/dl (74-100); HDL Cholesterol 55 mg/dl (40-60); Magnesium 1.7 mg/dl (1.6-2.3); Potassium 4.1 mmoL/L (3.5-5.1); Sodium 138 mmol/L (136-145); Total Protein,Serum 6.9 g/dl (6.3-8.2); Triglycerides 142 mg/dl (30-150); VLDL Cholesterol 28 mg/dL (0-40)
[2024-01-30 16:25] LABS: Direct LDL Cholesterol 133.73 mg/dL (100-129)
[2024-01-30 16:32] LABS: Free T4 (Free Thyroxine) 0.99 ng/dl (0.78-2.19)
[2024-01-30 16:45] LABS: Thyroid Stimulating Hormone 1.48 uIU/mL (0.465-4.68)
== END 2024-01-30 23:59 | disposition home or self-care (01) ==
LOC: LAB 15:13
PROVIDERS: PCP Family Medicine; Visit Provider Internal Medicine
DX: R00.2 Palpitations (principal); Z98.2 Presence of cerebrospinal fluid drainage device; R53.83 Other fatigue; R06.83 Snoring; R00.0 Tachycardia, unspecified; R06.09 Other forms of dyspnea; G51.4 Facial myokymia; E06.9 Thyroiditis, unspecified; Q24.8 Other specified congenital malformations of heart
CPT/HCPCS: 36415; 80048; 80061; 80076; 83735; 84439; 84443; 85025

== ENCOUNTER 2024-02-03 13:23 | Emergency (ER) | payer OTHER, SELFPAY ==
[2024-02-03 13:24] VITALS: BP 114/66; PULSE 123; RESP 20; TEMP 37.3; O2SAT 100; BMI 21.7
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
[2024-02-03 13:40] VITALS: BP 108/48; PULSE 70; O2SAT 99
--- NOTE | 2024-02-03 13:43 | XR_ITS ---
PROCEDURE INFORMATION: Exam: XR Chest Exam date and time: 02/03/2024 2:16 PM Age: 38 years old Clinical indication: Cough and shortness of breath; Additional info: Cough congestion rapid heart rate TECHNIQUE: Imaging protocol: Radiologic exam of the chest. Views: 2 views. COMPARISON: CR XR CHEST PORTABLE 10/15/2023 11:23 AM FINDINGS: Lungs: The lungs are clear. Pleural spaces: No pneumothorax or pleural effusion. Heart/Mediastinum: Cardiomediastinal silhouette is unremarkable. Bones/joints: No acute osseous or soft tissue abnormality. IMPRESSION: No acute cardiopulmonary abnormality.
--- NOTE | 2024-02-03 13:56 | ECG_ITS ---
APPROVED REPORT Exam: Resting ECG HR:109 bpm ECG Measurements Heart Rate 109 AXES HI 98 P 80 QRSd 96 QRS 95 QT 303 T 61 QTc 367 Conclusion SINUS TACHYCARDIA WITH SHORT HI INTERVAL BORDERLINE RIGHT AXIS DEVIATION [QRS AXIS > 90] ABNORMAL RHYTHM ECG Electronically signed by : BRITTON MANDUJANO, 02/03/2024 15:36:57
[2024-02-03] MEDS: IBUPROFEN 400 MG TABLET 800 MG PO (13:57)
[2024-02-03] MEDS: 0.9 % SODIUM CHLORIDE 1000ML 1,000 ML 999 ML IV (13:58)
[2024-02-03] MEDS: ACETAMINOPHEN 500MG TAB 1000 MG PO (13:58)
[2024-02-03 14:04] LABS: Influenza A, PCR Not Detected (NotDetected); Influenza B, PCR Not Detected (NotDetected)
[2024-02-03 14:06] LABS: Hemoglobin 14.6 g/dL (14.1-18.0); Mean Corpuscular HGB Conc 34.8 g/dL (31.8-35.4); Mean Corpuscular Hemoglobin 31.2 pg (27.0-31.2); Mean Corpuscular Volume 89.7 fl (80-94); Mean Platelet Volume 9.8 fl (7.4-10.4); Platelet Count 198 K/mm3 (142-424); Red Blood Count 4.68 M/mm3 (4.60-6.20); Red Cell Distribution Width 12.5 % (11.5-17.5); White Blood Count 7.8 K/mm3 (4.8-10.8)
[2024-02-03 14:07] LABS: Basophils % 0.5 % (0.1-2.0); Eosinophils % 0.4 % (0.1-12.0); Lymphocytes # 0.8 K/mm3 (0.7-4.5); Lymphocytes % 10.1 % (10-50); Monocytes # 0.7 K/mm3 (0.1-1.0); Monocytes % 9.1 % (1.7-9.3); Neutrophils # 6.2 K/mm3 (1.8-7.8); Neutrophils % 79.8 % (37.0-80.0)
[2024-02-03 14:13] LABS: Alanine Aminotransferase 26 U/L (12-78); Albumin Level 4.5 g/dl (3.5-5.0); Albumin/Globulin Ratio 1.4 (1.1-1.8); Alkaline Phosphatase 103 U/L (38-126); Anion Gap 14.5 mEq/L (5-15); Aspartate Amino Transferase 35 U/L (17-59); Bilirubin,Total 1.5 mg/dl (0.2-1.3); Blood Urea Nitrogen 13 mg/dl (9-20); Calcium 9.4 mg/dl (8.4-10.2); Carbon Dioxide 26 mmol/L (22.0-30.0); Chloride 100 mmol/L (98-107); Creatinine Clearance Estimated 80 mL/min (50-200); Estimated Glomerular Filt Rate 62 ml/min (>60); GFR (African American) 75 ML/MIN (>60); Globulin 3.2 g/dL (1.3-3.2); Glucose 119 mg/dl (74-100); Magnesium 1.8 mg/dl (1.6-2.3); Potassium 4.5 mmoL/L (3.5-5.1); Sodium 136 mmol/L (136-145); Total Protein,Serum 7.7 g/dl (6.3-8.2)
[2024-02-03 14:18] LABS: D-Dimer 0.72 ug/mL (0.0-0.5)
[2024-02-03 14:39] LABS: Troponin I < 0.01 ng/ml (0.00-0.034)
[2024-02-03] MEDS: DEXAMETHASONE 4MG/ML 5ML MDV 10 MG IV (14:42)
[2024-02-03] MEDS: IPRATROPIUM/ALBUTEROL 3 ML NEB IH (14:43)
[2024-02-03] MEDS: DOXYCYCLINE HYCL 100 MG TABLET PO (15:22)
[2024-02-03 15:27] VITALS: BP 121/49; PULSE 97; RESP 20; TEMP 36.8; O2SAT 98
[2024-02-03 16:21] LABS: RSV Rapid Ab Screen Negative (Negative)
[2024-02-03 18:33] LABS: Coronavirus 19, PCR Detected (NotDetected)
== END 2024-02-03 15:28 | disposition home or self-care (01) ==
PROVIDERS: Physician Assistant; Emergency Provider Emergency Medicine; PCP Family Medicine
DX: J18.9 Pneumonia, unspecified organism (principal); R05.9 Cough, unspecified; R09.89 Other specified symptoms and signs involving the circulatory and respiratory systems; R50.9 Fever, unspecified
CPT/HCPCS: 71046; 80053; 83735; 84484; 85025; 85378; 87636; 87807; 93005; 96361; 96374; 99284; J1100; J7030; J7620

== ENCOUNTER 2024-04-28 07:52 | Outpatient (CLI) | payer OTHER, SELFPAY ==
--- NOTE | 2024-04-28 07:54 | CA_ITS ---
APPROVED REPORT EXAM: Comprehensive 2D, Doppler, and color-flow Echocardiogram Physics Professor: Kiana Le RT(R) Ht: 6 ft 0 in Wt: 154lbs BSA: 1.91 BP: 130/80 mmHg Indications: Evaluated RV and known PFO, COPD, palpitations, SOB. PFO seen ion ROBYN 11/19/23. Echo Enhancing Agent Indication: Rule out Shunt Agent(s) / Amount(s) Used: Agitated Saline 20 cc 2D Dimensions Left Atrium 2.12 cm M: 3.0 - 4.0 LA Volume 37.60 mL LVOT 2.01 cm (M/F) 1.5-2.5 LA Volume Index 19.69 mL/m2 (M/F) 16-34 EF AP4 48.20 % GL Strain -18.9 % M-Mode Dimensions RVDd 2.30 cm (0.9-2.6) LVDd 4.27 cm (3.5-5.7) Ao Diam 3.20 cm (2.0-3.7) LVDs 3.20 cm (3.5-5.7) IVSd 0.67 cm (0.6-1.1) PWd 0.77 cm (0.6-1.1) EF (Teich) 49.80% FS 25.10% EDV (Teich) 81.70 mL ESV (Teich) 41.00 mL LV Diastology E Decel Time 186 (160-240 msec) E/A Ratio 1.6 MED E' 10.0 (>= 7 cm/sec) E'/MED E' Ratio 6.60 (<= 14) LAT E' 16.5 (>= 10 cm/sec) E/LAT E' Ratio 4.00 (<= 14) Mitral Valve MV E Max Wilfrido. 66.0 (40-130 cm/s) MV A Velocity 41.0 (40-130 cm/s) E/A Ratio 1.61 MV Decel. Time 186 (160-240 ms) Tricuspid Valve TR P. Velocity 188.00 cm/s RAP Estimate 10.00 mmHg RVSP 24.10 mmHg Left Ventricle The left ventricle is normal size. The left ventricular systolic function is normal. The left ventricular ejection fraction is within the normal range. There is normal left ventricular wall thickness. There is normal LV segmental wall motion. The left ventricular diastolic function is normal. LVEF is 55%. Right Ventricle Right ventricle is mildly dilated. The right ventricular systolic function is normal. Atria The left atrium size is normal. The right atrium size is normal. Known PFO. Agitated saline administration demonstrates presence of left to right interatrial shunt. Aortic Valve The aortic valve opens well. There is no aortic valvular stenosis. No aortic regurgitation is present. Mitral Valve The mitral valve is normal in structure. No evidence of mitral valve stenosis. Trace mitral regurgitation. Tricuspid Valve Tricuspid valve is grossly normal in structure and function. Mild tricuspid regurgitation. RVSP is 20-25 mmHg. Pulmonic Valve The pulmonary valve is normal in structure. Trace pulmonic regurgitation. Great Vessels The aortic root is normal in size. IVC is normal in size and collapses >50% with inspiration. Pericardium There is no pericardial effusion. Other Information Study Quality: Fair Conclusion Normal biventricular systolic function. Mild RV dilation with normal RV function. Known PFO. Agitated saline administration demonstrates presence of left to right interatrial shunt. Mild TR. RVSP is 20-25 mmHg. Compared to prior TTE from 06/17/2023, the biventricular function has improved and is now normal. The RV remains mildly dilated, but overall with unchanged dimensions compared to prior. Electronically signed by : Irais Booker MD 05/02/2024 17:24:19
== END 2024-04-28 23:59 | disposition home or self-care (01) ==
LOC: RT 07:52
PROVIDERS: PCP Family Medicine; Visit Provider Internal Medicine
DX: I51.7 Cardiomegaly (principal); Q21.12 Patent foramen ovale; I36.1 Nonrheumatic tricuspid (valve) insufficiency; I50.20 Unspecified systolic (congestive) heart failure
CPT/HCPCS: 93306

== ENCOUNTER 2024-04-29 14:31 | Outpatient (CLI) | payer OTHER, SELFPAY ==
--- NOTE | 2024-04-29 14:34 | XR_ITS ---
FINAL REPORT CLINICAL HISTORY: chest pain states when he breathes in he feels bubbles on the left side FINDINGS: No acute pulmonary density is evident. There is no evidence of effusion or other pleural disease. The mediastinum has a normal appearance. There is no evidence of hemothorax or chest wall subcutaneous emphysema. The cardiac silhouette is unremarkable. IMPRESSION: Unremarkable chest exam. Reviewed, Interpreted and Dictated by Mik Brito MD Transcribed by Devora Hernandez Authenticated and [facility]
== END 2024-04-29 23:59 | disposition home or self-care (01) ==
LOC: RAD 14:33
PROVIDERS: PCP Family Medicine; Visit Provider Specialist
DX: R07.9 Chest pain, unspecified (principal); R07.81 Pleurodynia; Z87.01 Personal history of pneumonia (recurrent)
CPT/HCPCS: 71046

== ENCOUNTER 2024-09-06 14:18 | Outpatient (CLI) | payer OTHER, SELFPAY ==
--- OUTSIDE RECORDS SUMMARY | 2024-09-06 14:23 | XMS_ITS | Clinical Summary ---
[facility] Address [address] [place] [address] Care Team Providers Care Retirement Manager Name Role Phone Emery Landrum MD Primary Care Provider [phone] Allergies Active Allergy Reactions Criticality Noted Date Comments Cefazolin Rash Low 02/26/2017 Meperidine Rash Low 02/26/2017 Penicillins Other (See Comments) Low 02/26/2017 Hypotension and bradycardia Medications albuterol sulfate HFA 108 (90 Base) MCG/ACT inhalerIndication s:Mild intermittent asthma without complication Inhale 1-2 puffs Every 4 (Four) Hours As Needed for Wheezing or Shortness of Air. 18 g 5 1 Active Triamcinolone Acetonide (NASACORT) 55 MCG/ACT nasal inhalerIndication s:Non-seasonal allergic rhinitis due to pollen 2 sprays into the nostril(s) as directed by provider Daily. 16.5 g 5 2 Active levocetirizine (XYZAL) 5 MG tabletIndications :Non-seasonal allergic rhinitis due to pollen Take 1 tablet by mouth Every Evening. 30 tablet 5 2 Active venlafaxine (EFFEXOR) 75 MG tablet Take 1 tablet by mouth 2 (Two) Times a Day. Active Active Problems Problem Noted Date Diagnosed Date Seasonal allergies 10/07/2018 Opiate abuse, continuous 06/11/2017 Primary insomnia 04/11/2017 Non-intractable cyclical vomiting with nausea Recent unexplained weight loss 04/11/2017 Hx of substance abuse 04/11/2017 Overview (04/11/2017): IV heroin went through rehab August 2016 Anxiety 02/26/2017 Mild intermittent asthma without complication Kidney stone 02/26/2017 Immunizations Immunization Administration Dates Next Due Hepatitis A 10/04/2017 Family History Medical History Relation Name Comments Coronary artery disease Father Hyperlipidemia Father Hypertension Father Migraines Mother Diabetes Paternal Uncle Relation Name Status Comments Father Alive Mother Alive Paternal Uncle Social History Tobacco Use Types Packs/Day Years Used Date Smoking Tobacco: Former Electronic Cigarette Smokeless Tobacco: Never Tobacco Cessation:Ready to Q uit: No; Counseling Given: Yes Comments:rare, he is cutting back Alcohol Use Standard Drinks/Week Comments No 0 (1 standard drink = 0.6 oz pur e alcohol) PHQ-2 Answer Date Recorded Retired PHQ-9: Brief Depression Severity Measure Score 0 09/10/2021 Abuse Screen Answer Date Recorded Unsafe at Home or Work/School Not on file Feels Threatened by Someone? Not on file 10/2022 Does Anyone Keep You from Co ntacting Others or Doint Things Outside the Home? Not on file 11/18/2022 Physical Sign of Abuse Present Not on file 1 Housing Stability Answer Date Recorded Current Living Arrangements Not on file 10/2022 Potentially Unsafe Housing Conditions Not on my e 11/18/2022 Family and Community Support Answer Jose e Recorded Help with Day-to-Day Activities Not on file 11/18/2022 Lonely or Isolated Not on file 11/18/2022 Employment Answer Date Recorded Do you want help finding or keeping work or a mari b? Not on file 11/18/2022 Disabilities Answer Date Recorded Concentrating, Remembering, or Making Decisions Difficulty Not on file 11/18/2022 Doing Errands Independently Difficulty Not on fi le 11/18/2022 Education Answer Date Recorded Help with school or training? Not on file Preferred Language Not on file 11/18/2022 Sex and Gender Information Value Date Recorded Sex Assigned at Not on file Legal Sex Male 10:37 AM EDT Gender Identity Not on file Sexual Orientation Not on file Occupation Industry Job Start Date Job End Date [employer] judit Not on file Not on file Not on file Last Filed Vital Signs Vital Sign Reading Time Taken Comments Blood Pressure 100/72 03/19/2023 12:09 PM EST Pulse 97 03/19/2023 12:09 PM EST Temperature 36.6 C (97.8 F) 03/19/2023 12:09 PM EST Respiratory Rate 16 03/19/2023 12:09 PM EST Oxygen Saturation 98% 03/19/2023 12:09 PM EST Inhaled Oxygen Concentration - - Weight 68.5 kg (151 lb) 03/19/2023 12:09 PM EST Height 182.9 cm (6') 03/19/2023 12:09 PM EST Body Mass Index 20.48 03/19/2023 12:09 PM EST Plan of Treatment Health Maintenance Due Date Last Done Comments Pneumococcal Vaccine 0-49 (1 of 2 - PCV) 2005 TDAP/TD VACCINES (1 - Tdap) 2005 ANNUAL PHYSICAL 02/26/2017 COVID-19 Vaccine ( - season) 2023 INFLUENZA VACCINE 11/10/2024 HEPATITIS C SCREENING Completed 05/12/2017 Procedures Procedure Name Priority Date/Time Associated Diagnosis Comments HEPATITIS C ANTIBODY Routine 05/12/2017 3:49 PM EDT At risk for HIV due to injection of drugs from Last 3 Months or Most Recently Relevant to Health Maintenance Results * Hepatitis C Antibody (05/12/2017 3:49 PM EDT) Hep C Virus Ab 0.2 0.0 - 0.9 s/co ratio [facility] Comment: Negative: < 0.8 Indeterminate: 0.8 - 0.9 Positive: > 0.9 The CDC recommends that a positive HCV antibody result be followed up with a HCV Nucleic Acid Amplification test ([id number]). Blood 05/12/2017 3:49 PM EDT 05/12/2017 Narrative [facility]) - 05/13/2017 8:20 AM EDT Performed at: [facility] [id number] Greens Keeper: Tony Spence PhD, Phone: [phone] us Emery Landrum MD LAB BLOOD ORDERABLES Final Resu lt [facility] ([facility]) [address] [place] [address], [facility] [address] [place] [address], from Last 3 Months or Most Recently Relevant to Health Maintenance Insurance [facility] Care Teams Retirement Manager Relationship Specialty Start Date End Date Emery Landrum MD [address] [place] [id number] PCP - General Family Medicine 02/26/17
--- OUTSIDE RECORDS SUMMARY | 2024-09-06 14:23 | XMS_ITS | Encounter Summary ---
Author Organization Healthcare Address [address] [place] [address] Care Team Providers Care Aerial Hurricane Hunter Name Role Phone Lisa Neville Primary Care Provider [phone] Encounter Details Date Type Department Care Team (Late st Contact Info) Description 12/11/2023 Orders Only External Location [address] [place] [address] Provider, External Social History Tobacco Use Types Packs/Day Years Used Date Smoking Tobacco: Never Assessed Sex and Gender Information Value Date Recorded Sex Assigned at Not on file Legal Sex Male 7:47 PM EDT Gender Identity Not on file Sexual Orientation Not on file documented as of this encounter Plan of Treatment Not on file documented as of this encounter Procedures Procedure Name Priority Date/Time Associated Diagnosis Comments US OUTSIDE IMAGES 12/11/2023 11:02 AM EDT documented in this encounter Results * US OUTSIDE IMAGES (12/11/2023 11:02 AM EDT) Anatomical Region Laterality Modality Ultrasound 12/11/2023 11:0 2 AM EDT us External Provider IMG US PROCEDURES Final Result documented in this encounter Visit Diagnoses Not on filedocumented in this encounter Additional Health Concerns Infection Onset Date Last Indicated Resolved Time Influenza 03/30/2024 03/30/2024 04/27/2024 9:54 PM EDT documented as of this encounter Care Teams Aerial Hurricane Hunter Relationship Specialty Start Date End Date Lisa Neville PA [address] [facility] [address] [place] [address] PCP - General 06/23/20 documented as of this encounter
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
== END 2024-09-06 23:59 | disposition home or self-care (01) ==
LOC: RT 14:19
PROVIDERS: PCP Family Medicine; Visit Provider Internal Medicine
DX: I49.1 Atrial premature depolarization (principal); I47.19 Other supraventricular tachycardia; I49.3 Ventricular premature depolarization
CPT/HCPCS: 93270

== ENCOUNTER 2024-09-14 07:56 | Outpatient (CLI) | payer OTHER, SELFPAY ==
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
--- OUTSIDE RECORDS SUMMARY | 2024-09-14 07:59 | XMS_ITS | Clinical Summary ---
[facility] Address [address] [place] [address] Care Team Providers Care Power Transformer Assembler Name Role Phone Emery Landrum MD Primary Care Provider [phone] Allergies Active Allergy Reactions Criticality Noted Date [...] Industry Job Start Date Job End Date [employer] judit Not on file Not on file [...] with a HCV Nucleic Acid Amplification test ([id number]). Blood 05/12/2017 3:49 PM EDT 05/12/2017 Narrative [facility] ([facility]) - 05/13/2017 8:20 AM EDT Performed at: [facility] [id number] Batter Mixer: Tony Spence PhD, Phone: [phone] us Emery Landrum MD LAB BLOOD ORDERABLES Final Resu lt [facility] ([facility]) [address] [place] [address], [facility] [address] [place] [address], from Last 3 Months or Most Recently Relevant to Health Maintenance [facility] Care Teams Power Transformer Assembler Relationship Specialty Start Date End Date Emery Landrum MD [address] [place] [id number] PCP - General Family Medicine 02/26/17
--- OUTSIDE RECORDS SUMMARY | 2024-09-14 07:59 | XMS_ITS | Encounter Summary ---
Author Organization Healthcare Address [address] [place] [address] Care Team Providers Care Lead Janitor Name Role Phone Lisa Neville Primary Care Provider [phone] Encounter Details Date Type Department Care Team (Late st Contact Info) Description 12/11/2023 Orders Only External Location [address] [place] [address] Provider, External Social History Tobacco Use Types [...] documented as of this encounter Care Teams Lead Janitor Relationship Specialty Start Date End Date Lisa Neville PA [address] [facility] [address] [place] [address] PCP - General 06/23/20 documented as of this encounter
--- NOTE | 2024-09-14 08:00 | CA_ITS ---
APPROVED REPORT EXAM: Comprehensive 2D, Doppler, and color-flow Echocardiogram Radiography Technician: Kiana Le RT(R) Ht: 6 ft 0 in Wt: 155lbs BSA: 1.91 BP: 112/52 mmHg Indications: palpitations, bradycardia, known PFO Echo Enhancing Agent Indication: Rule out Shunt Agent(s) / Amount(s) Used: Agitated Saline 20 cc 2D Dimensions LVEF (Camarena's) 51.40 % M: 52 - 72 LV Volume 117.20 mL M: 62 - 150 LV Volume Index 61.4 mL/m2 M: 34 - 74 LA Volume 30.80 mL LA Volume Index 16.13 mL/m2 (M/F) 16-34 EF AP4 42.50 % EF AP2 57.7 % EF BP 51.4 % GL Strain -10.8 % M-Mode Dimensions RVDd 2.53 cm (0.9-2.6) LA Diam 1.97 cm (1.9-4.0) LVDd 4.81 cm (3.5-5.7) LVDs 3.60 cm (3.5-5.7) IVSd 0.64 cm (0.6-1.1) PWd 0.86 cm (0.6-1.1) EF (Teich) 49.60% FS 25.20% EDV (Teich) 108.00 mL ESV (Teich) 54.40 mL LV Diastology E Decel Time 207 (160-240 msec) E/A Ratio 1.5 Mitral Valve MV E Max Wilfrido. 65.0 (40-130 cm/s) MV A Velocity 43.0 (40-130 cm/s) E/A Ratio 1.52 MV PHT 61.0 ms Tricuspid Valve TR P. Velocity 211.00 cm/s Left Ventricle The left ventricle is normal size. Left ventricular systolic function is normal. The left ventricular ejection fraction is within the normal range. There is normal left ventricular wall thickness. There is normal LV segmental wall motion. The left ventricular diastolic function is normal. LVEF is 55% Right Ventricle The right ventricle is borderline dilated. The right ventricular systolic function is low-normal. Atria The left atrium size is normal. The right atrium size is normal. Known PFO. Agitated saline administration demonstrates the presence of interatrial shunt. Aortic Valve The aortic valve opens well. There is no hemodynamically significant aortic valvular stenosis. No aortic regurgitation is present. Mitral Valve The mitral valve is normal in structure. No evidence of mitral valve stenosis. Trace mitral regurgitation is present. Tricuspid Valve The tricuspid valve leaflets are thin and pliable. Mild tricuspid regurgitation. RVSP is 20-25 mmHg. Pulmonic Valve The pulmonary valve is grossly normal in structure. Trace pulmonic valve regurgitation is present. Great Vessels The aortic root is normal in size. IVC is normal in size and collapses >50% with inspiration. Pericardium There is no pericardial effusion. Other Information Study Quality: Fair Conclusion Normal biventricular systolic function. Borderline RV dilation. Known PFO. Agitated saline administration demonstrates presence of interatrial shunt. Mild TR. Compared to prior study from 04/28/2024, there are no significant changes to chamber sizes or biventricular function. Electronically signed by : Irais Booker MD 09/14/2024 19:53:19
== END 2024-09-14 23:59 | disposition home or self-care (01) ==
LOC: RT 07:57
PROVIDERS: PCP Family Medicine; Visit Provider Internal Medicine
DX: I07.1 Rheumatic tricuspid insufficiency (principal); Q21.12 Patent foramen ovale; I20.89 Other forms of angina pectoris; R00.1 Bradycardia, unspecified
CPT/HCPCS: 93306

== ENCOUNTER 2024-09-27 12:23 | Emergency (ER) | payer OTHER, SELFPAY ==
--- NOTE | 2024-09-27 12:21 | ECG_ITS ---
APPROVED REPORT Exam: Resting ECG HR:68 bpm ECG Measurements Heart Rate 68 AXES WI 109 P 78 QRSd 102 QRS 92 QT 340 T 56 QTc 358 Conclusion Normal Sinus Rhythm Normal [place] Interval, NO delta wave No QTc prolongation NO STEMI Electronically signed by : Derrick Carpenter, 09/27/2024 17:30:35
[2024-09-27 12:35] VITALS: BP 94/65; PULSE 74; RESP 18; TEMP 37.1; O2SAT 100; BMI 21.7
[2024-09-27 12:45] VITALS: PULSE 74
[2024-09-27 13:03] LABS: Hematocrit 43.8 % (42.0-52.0); Hemoglobin 15.0 g/dL (14.1-18.0); Immature Granulocytes % 0.2 %; Mean Corpuscular HGB Conc 34.2 g/dL (31.8-35.4); Mean Corpuscular Hemoglobin 31.4 pg (27.0-31.2); Mean Corpuscular Volume 91.6 fl (80-94); Nucleated Red Blood Cells % 0 %; Platelet Count 240 K/mm3 (142-424); Red Blood Count 4.78 M/mm3 (4.60-6.20); Red Cell Distribution Width-SD 42.9 fL; White Blood Count 4.8 K/mm3 (4.8-10.8)
[2024-09-27 13:08] LABS: Albumin Level 4.5 g/dl (3.5-5.0); Chloride 102 mmol/L (98-107)
[2024-09-27 13:09] LABS: Potassium 4.0 mmoL/L (3.5-5.1); Sodium 138 mmol/L (136-145)
[2024-09-27 13:11] LABS: Alanine Aminotransferase 26 U/L (12-78); Anion Gap 13.0 mEq/L (5-15); Aspartate Amino Transferase 30 U/L (17-59); Blood Urea Nitrogen 15 mg/dl (9-20); Carbon Dioxide 27 mmol/L (22.0-30.0); Creatinine Clearance Estimated 103 mL/min (50-200); Creatinine,Serum 1.00 mg/dl (0.66-1.25); Estimated Glomerular Filt Rate 84 ml/min (>60); GFR (African American) 101 ML/MIN (>60)
[2024-09-27 13:12] LABS: Albumin/Globulin Ratio 1.8 (1.1-1.8); Alkaline Phosphatase 67 U/L (38-126); Bilirubin,Total 0.5 mg/dl (0.2-1.3); Calcium 9.4 mg/dl (8.4-10.2); Globulin 2.5 g/dL (1.3-3.2); Glucose 115 mg/dl (74-100); Total Protein,Serum 7.0 g/dl (6.3-8.2)
--- OUTSIDE RECORDS SUMMARY | 2024-09-27 13:19 | XMS_ITS | Encounter Summary ---
Author Organization Healthcare Address [address] [place] [address] Care Team Providers Care Rip Saw Operator Name Role Phone Lisa Neville Primary Care Provider [phone] Encounter Details Date Type Department Care Team (Late st Contact Info) Description 12/11/2023 Orders Only External Location [address] [place] [address] Provider, External Social History Tobacco Use Types [...] documented as of this encounter Care Teams Rip Saw Operator Relationship Specialty Start Date End Date Lisa Neville PA [address] [facility] [address] [place] [address] PCP - General 06/23/20 documented as of this encounter
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
--- OUTSIDE RECORDS SUMMARY | 2024-09-27 13:19 | XMS_ITS | Clinical Summary ---
[facility] Address [address] [place] [address] Care Team Providers Care Container Finishing Inspector Name Role Phone Emery aLndrum MD Primary Care Provider [phone] Allergies Active Allergy Reactions Criticality Noted Date [...] Industry Job Start Date Job End Date [employer] Not on file Not on file [...] with a HCV Nucleic Acid Amplification test ([id number]). Blood 05/12/2017 3:49 PM EDT 05/12/2017 Narrative [facility] ([facility]) - 05/13/2017 8:20 AM EDT Performed at: [facility] [id number] Entry Driver Operator: Tony Spence PhD, Phone: [phone] us Emery Landrum MD LAB BLOOD ORDERABLES Final Resu lt [facility] (AMBULATORY) [address] [place] [address], [facility] [address] [place] [address], from Last 3 Months or Most Recently Relevant to Health Maintenance Insurance [facility] Care Teams Container Finishing Inspector Relationship Specialty Start Date End Date Emery Landrum MD [address] [place] [id number] PCP - General Family Medicine 02/26/17
[2024-09-27 13:30] LABS: Troponin I < 0.01 ng/ml (0.00-0.034)
== END 2024-09-27 15:02 | disposition left against medical advice (07) ==
LOC: ER 13:16
PROVIDERS: Emergency Provider Student in an Organized Health Care Education/Training Program; PCP Family Medicine
DX: R07.9 Chest pain, unspecified (principal)
CPT/HCPCS: 80053; 84484; 85025; 93005; 99283

== ENCOUNTER 2024-10-26 08:46 | Outpatient (RCR) | payer OTHER, SELFPAY | END 2024-10-26 23:59 | disposition home or self-care (01) | LOC: PT 08:46 | PROVIDERS: PCP Family Medicine; Visit Provider Internal Medicine | DX: R53.81 Other malaise (principal) ==